=== PATIENT | male | born 1940 | race Caucasian/White ===

== ENCOUNTER 2018-04-04 10:40 | Inpatient (IN) ==
[~2018-04-04 10:40] MED LIST: Aminoglycoside Consult 1 EACH MC ONE
[2018-04-04] MEDS ORDERED: Cefepime HCl 2,000 MG in Water for inj. (sterile) 20 ML 20 ML IVP ONE (11:04)
[2018-04-04] MEDS ORDERED: 0.9 % Sodium Chloride 1,000 ML IVC ONE (11:04)
[2018-04-04] MEDS ORDERED: Isovue-370 500 ML INFUS..BTL IV ONE (11:06)
[2018-04-04 11:37] LABS: Basophils # 0.1 K/mcL (0.0-0.2); Basophils % 0.5 %; Eosinophils # 0.1 K/mcL (0.0-0.6); Eosinophils % 0.5 %; Hematocrit 38.3 % (37.5-50.1); Immature Granulocytes % 0.4 % (0-4); Lymphocytes # 1.1 K/mcL (0.6-4.6); Lymphocytes % 8.6 %; Mean Corpuscular HGB Conc 31.3 g/dL (31.6-35.5); Mean Corpuscular Hemoglobin 25.3 pg (28.0-33.3); Mean Corpuscular Volume 80.8 fL (83.0-100.0); Mean Platelet Volume 11.7 fL (9.4-12.4); Monocytes # 1.7 K/mcL (0.0-1.3); Monocytes % 12.6 %; Neutrophils # 10.1 K/mcL (1.6-8.9); Platelet Count 299 K/mcL (140-400); Red Blood Count 4.74 M/mcL (4.19-5.50); Segmented Neutrophils % 77.4 %
[2018-04-04 11:44] LABS: INR 1.9; Prothrombin Time 21.1 Seconds (9.4-12.1)
[2018-04-04 11:47] LABS: Activated Partial Thrombo Time 33.5 Seconds (26.0-36.0)
[2018-04-04 11:57] LABS: Alanine Aminotransferase 26 Units/L (7-52); Albumin 3.4 g/dL (3.5-5.7); Albumin/Globulin Ratio 1.1 (1.1-2.2); Alkaline Phosphatase 95 Units/L (34-104); Aspartate Amino Transferase 19 Units/L (13-39); BUN/Creatinine Ratio 14 (6-26); Bilirubin,Direct 0.4 mg/dL (0.0-0.2); Bilirubin,Indirect 0.7 mg/dL (0.0-1.2); Bilirubin,Total 1.1 mg/dL (0.3-1.0); Blood Urea Nitrogen 17 mg/dL (8-23); Calcium 8.9 mg/dL (8.6-10.3); Carbon Dioxide 25 mEq/L (23-29); Chloride 100 mEq/L (98-107); Globulin 3.1 g/dL (2.4-3.5); Glucose 230 mg/dL (70-105); Magnesium 1.2 mg/dL (1.6-2.6); Osmolality,Calculated 291 (280-300); Phosphorous 2.1 mg/dL (2.7-4.5); Potassium 4.2 mEq/L (3.5-5.1); Sodium 136 mEq/L (136-145); Total Protein 6.5 g/dL (6.4-8.9); Troponin I < 0.03 ng/mL (< 0.04); eGFR For Non-African Americans 57 (> 60)
[2018-04-04 13:18] LABS: Bilirubin,Urine Small (Negative); Blood,Urine Negative (Negative); Clarity,Urine Clear (Clear); Color,Urine Dark Yellow (Yellow); Glucose,Urine (UA) 250 mg/dL (Normal); Ketones,Urine Negative (Negative); Leukocyte Esterase,Urine Trace (Negative); Nitrite,Urine Negative (Negative); PH,Urine 5.5 pH Units (5.0-8.0); Protein,Urine 30 mg/dL (Neg-Trace); Specific Gravity,Urine 1.025 (1.010-1.025); Urobilinogen,Urine Normal (Normal)
[2018-04-04 13:21] LABS: Bacteria,Urine None Seen per hpf (None-Few); Hyaline Casts,Urine None Seen per lpf (None-Few); Squamous Epithelial Cell,Urine Few per lpf (None-Few)
[2018-04-04] MEDS ORDERED: *HR* Metoprolol 5 MG/5 ML VIAL IVP ONE (13:24)
[2018-04-04] MEDS ORDERED: *HR* Metoprolol 5 MG/5 ML VIAL IVP SCH (13:30)
[2018-04-04] MEDS: 0.9 % Sodium Chloride 1,000 ML IVC SCH ×2 (14:33→23:49)
[2018-04-04] MEDS ORDERED: Naloxone 0.4 MG/ML INJ IVP PRN (17:22)
[2018-04-04] MEDS ORDERED: Ondansetron 4 MG/2 ML VIAL IVP PRN (17:22)
[2018-04-04] MEDS ORDERED: Ipratropium/Albuterol Neb 3 ML IH ONE (17:39)
[2018-04-04] MEDS ORDERED: Piperacillin/Tazobactam 3.375 GM in 0.9 % Sodium Chloride Mini Bag 100 ML IVPB SCH (17:43)
[2018-04-04] MEDS ORDERED: Ipratropium/Albuterol Neb 3 ML IH SCH (17:43)
--- NOTE | 2018-04-04 17:52 | Internal Med History&Physical ---
<Phong Arellano W - Last Filed: 04/04/18 18:40> Date of Encounter: 04/04/18 Time of Encounter: 17:00 Internal Medicine - H&P: HPI Chief complaint: Cough Admitted From: Home Plans for Post Hospital Care: Home History of present illness: Mr. Taveras is a 77 year old male with PMH of AFib, COPD, asthma, PAD, DMII, GERD, HLD, HTN, and aortic aneurysm who presents with worsening cough for the past 7-10 days. Pt stated he had a wet, mucus producing cough that started about 10 days ago and would produce clear mucus, but the cough turned into a dry cough starting this past wednesday. Pt states that he takes a nebulizer at home Q4h as prescribed which helped his cough. He also tried cough syrup, but that didn't h elp. Nothing makes his cough worse. He has never experienced a cough like this before, but had a bout of bronchitis about 15 years ago, but not to this extent. He states he feels short of breath and is currently on 1.5L O2 NC, but doesn't feel like that is helping. He is not on O2 at home. He denies any sick contacts. Denies n/v/f/c/schilling/cp. Denies constipation, diarrhea, hematochezia, dysuria, or h ematuria. ED Course: labs were drawn and showed WBC of 13.1. Mg was low at 1.2. Lactic acid of 2.5 on admission and 1.7 on redraw. UA showed trace leukocyte esterase with 3-5 WBC and 5-15 RBC. Urine culture pending and blood cultures x2 pending. CTA showed no PE and multifocal broncopneumonia more in RLL with possible aspiration pneumonitis. Head CT showed acute sinusitis, otherwise non-acute. S tarted on Vanc and Maxipime. Mg-sulfate given. 1L NS bolus given. Past Med Surg Social Fam HX - Past Medical History Medical history: asthma, atrial fibrillation, cancer, DVT, diabetes, GERD, hyperlipidemia, renal disease Additional medical history: anemia. cluastrophobia,neuropathy, Psychiatric history: anxiety - Past Surgical History Surgical History: cancer surgery, cholecystectomy, colectomy, orthopedic, other, vasectomy Additional surgical history: Right AKA, Colon Resection - Social History Smoking Status: Former smoker Smokeless Tobacco Status: No Alcohol use: none Drug use: none Internal Medicine - H&P: Meds Albuterol Sulfate [Proair Hfa] 1 puff IH QID PRN 08/13/15 [History] Cyanocobalamin (Vitamin B-12) [Vitamin B-12] 1,000 mcg SL DAILY 08/13/15 [History] Omeprazole [PriLOSEC] 20 mg PO DAILY 08/13/15 [History] Rivaroxaban [Xarelto] 20 mg PO DAILY 08/13/15 [History] Fluticasone Propionate [Allergy Relief] 1 spr NS DAILY 04/04/18 [History] Metformin HCl 1,000 mg PO BID 04/04/18 [History] Metoprolol Tartrate 50 mg PO BID 04/04/18 [History] Simvastatin [Zocor] 40 mg PO QPM 04/04/18 [History] Allergy/AdvReac Type Severity Reaction Status Date / Time acetaminophen [From Percocet] Allergy Hallucinati Verified 10/13/17 11:31 ng adhesive tape Allergy See Verified 10/13/17 11:31 Comments aspirin [From Percodan] Allergy Hallucinati Verified 10/13/17 11:31 ng Oxycodone [From Percocet] Allergy Hallucinati Verified 10/13/17 11:31 ng All Systems PM: A 10-system review of systems was performed and is negative for pertinent findings except as documented above in the HPI. - Constitutional Constitutional: no chills, no fever(s), no night sweats - EENT Eyes: no change in vision, no discharge, no pain, no photophobia Nose, mouth and throat: no nasal discharge, no sore throat - Respiratory Respiratory: cough, wheezing, no dyspnea, no excessive phlegm production - Gastrointestinal Gastrointestinal: no abdominal pain, no diarrhea, no hematemesis, no hematochezia, no melena, no nausea, no vomiting - Musculoskeletal Musculoskeletal ROS IM: no arthralgias, no neck pain Additional comments: Uli FENTON - Integumentary Integumentary IM: no rash, no unusual bruising - Neurological Neurological ROS: no confusion, no convulsions, no focal weakness, no numbness, no tingling, no tremor(s) - Psychiatric Psychiatric: anxiety, no change in appetite, no confusion - Hematologic/Lymphatic Hematologic/Lymphatic: no easy bruising - Constitutional Vitals: Temp Pulse Resp BP Pulse Ox 98.2 F 98 21 102/69 94 04/04/18 16:45 04/04/18 16:45 04/04/18 16:45 04/04/18 16:45 04/04/18 16:45 Exam: Gen: mild distress, eldery male HEENT: neck supple, trachea midline, eyes PERRLA, mucus membranes moist CV: irregular irregular rhythm, tachycardic, no murmur, S1 and S2 present Pulm: expiratory wheezes b/l, no rales or rhonci, accessory muscle use Abd: distended, non tender, no masses, no guarding Extremities: R LE AKA, no swelling, LLE pedal pulse +2/4 Neuro: A&O x4, no focal deficits Psych: normal mood, normal affect Internal Med - H&P Results - Labs CBC & Chem 7: 04/04/18 11:20 04/04/18 11:20 Labs: Short CBC 04/04/18 Range/Units 11:20 WBC 13.1 H (4.3-11.1) K/mcL Hgb 12.0 L (12.9-16.9) g/dL Hct 38.3 (37.5-50.1) % Plt Count 299 (140-400) K/mcL Neutrophils # 10.1 H (1.6-8.9) K/mcL BMP 04/04/18 11:20 Sodium 136 Potassium 4.2 Chloride 100 Carbon Dioxide 25 BUN 17 Creatinine 1.23 Glucose 230 H Calcium 8.9 Cardiac Enzymes 04/04/18 Range/Units 11:20 Troponin I < 0.03 (< 0.04) ng/mL Liver Function 04/04/18 Range/Units 11:20 Total Bilirubin 1.1 H (0.3-1.0) mg/dL Direct Bilirubin 0.4 H (0.0-0.2) mg/dL AST 19 (13-39) Units/L ALT 26 (7-52) Units/L Alkaline Phosphatase 95 (34-104) Units/L Albumin 3.4 L (3.5-5.7) g/dL Urine 04/04/18 Range/Units 12:59 Urine Color Dark Yellow (Yellow) Urine Clarity Clear (Clear) Urine pH 5.5 (5.0-8.0) pH Units Ur Specific Lysite 1.025 (1.010-1.025) Urine Protein 30 H (Neg-Trace) mg/dL Urine Glucose (UA) 250 H (Normal) mg/dL - Impressions ITS Impressions Chest CTA 04/04/18 11:06 IMPRESSION: 1. No acute pulmonary emboli. 2. Multifocal basilar bronchopneumonia more prominent in the right lower lobe. This could relate to possible aspiration pneumonitis. 3. Mild emphysema. 4. Probable reactive right hilar lymphadenopathy. 5. Coronary and aortic atherosclerosis. D/ / 04/04/2018 13:05:40 Ramesh Benson MD / Ebony Castro Interpreting Provider: Ramesh Benson MD Head CT 04/04/18 13:45 IMPRESSION: 1. Intravascular contrast from recent IV contrast administration noted. 2. No gross acute intracranial abnormality. 3. Parenchymal volume loss and sequela of chronic microvascular ischemic changes. 4. Crews paranasal as mucosal thickening. Air-fluid level in the sphenoid sinus may represent acute sinusitis. D/ / Lisa Nunez MD / Lisa Nunez MD Interpreting Provider: Lisa Nunez MD - Assessment and plan (1) Sepsis Current Visit: Yes Status: Acute Assessment and plan: -WBC 13.1, tachy of 141, and RR 24 on admission; likely source of infection is pneumonia -lactic acid 2.5 on admission; down to 1.7 on redraw; trend -UA showed trace leukocyte esterase with 3-5 WBC and 5-15 RBC -Urine culture pending -blood cultures pending x2 -troponins trend -1L NS bolus given in ED; continue for 2 more liters, then reasses fluid status -started on vanc and maxipime; will change to vanc and zosyn -will start azithromycin for both possible COPD exacerbation and atypical pneumonia if aspiration pneumonia is more likely -strict I/O -daily weights Qualifiers: Qualified Code(s): A41.9 - Sepsis, unspecified organism (2) Pneumonia Current Visit: Yes Status: Acute Assessment and plan: -CTA in ED: no PE; multifocal bronchopneumonia more so in RLL with possible aspiration pneumonitis -CT head: acute sinusitis otherwise non-acute -blood cultures pending x2 -strep pneumonia, legionella, flu panel, mycoplasma, and MRSA swab pending -1L NS bolus in ED; continue for 2 more liters, then reassess fluid status -started on vanc and maxipime; will change to vanc and zosyn -will start azithromycin for both possible COPD exacerbation and atypical pneumonia if aspiration pneumonia is more likely -zopidex Q6h Qualifiers: Qualified Code(s): J18.9 - Pneumonia, unspecified organism (3) COPD (chronic obstructive pulmonary disease) Current Visit: Yes Status: Acute Assessment and plan: -former smoker -see pneumonia for treatment -monitor Qualifiers: Qualified Code(s): J44.9 - Chronic obstructive pulmonary disease, unspecified (4) Atrial fibrillation Current Visit: Yes Status: Acute Assessment and plan: -CHADS-VASc of 5 -on Xarelto; continue while in hospital Qualifiers: Qualified Code(s): I48.91 - Unspecified atrial fibrillation (5) Diabetes mellitus type 2 in nonobese Current Visit: Yes Status: Acute Assessment and plan: -glucose 230 on admission -hold metformin -start low dose ISS -monitor (6) HLD (hyperlipidemia) Current Visit: Yes Status: Acute Assessment and plan: -continue home simvastatin Qualifiers: Qualified Code(s): E78.00 - Pure hypercholesterolemia, unspecified (7) HTN (hypertension) Current Visit: Yes Status: Acute Assessment and plan: -continue home lopressor Qualifiers: Qualified Code(s): I10 - Essential (primary) hypertension (8) Asthma Current Visit: Yes Status: Acute Assessment and plan: -zopidex Q6h Qualifiers: Qualified Code(s): J45.909 - Unspecified asthma, uncomplicated - Time Spent With Patient Total time spent is greater than 50% in coordination of care (as documented) at patient's floor/unit and/or counseling patient: 25 - 35 minutes <Fernando Li - Last Filed: 04/04/18 19:35> Internal Medicine - H&P: HPI History of present illness: Mr. Taveras is a 77 year old male All Systems PM: A 10-system review of systems was performed and is negative for pertinent findings except as documented above in the HPI. - Constitutional Vitals: Temp Pulse Resp BP Pulse Ox 98.2 F 98 18 102/69 92 04/04/18 16:45 04/04/18 16:45 04/04/18 17:47 04/04/18 16:45 04/04/18 17:47 Internal Med - H&P Results - Labs CBC & Chem 7: 04/04/18 11:20 04/04/18 11:20 Labs: Short CBC 04/04/18 Range/Units 11:20 WBC 13.1 H (4.3-11.1) K/mcL Hgb 12.0 L (12.9-16.9) g/dL Hct 38.3 (37.5-50.1) % Plt Count 299 (140-400) K/mcL Neutrophils # 10.1 H (1.6-8.9) K/mcL BMP 04/04/18 11:20 Sodium 136 Potassium 4.2 Chloride 100 Carbon Dioxide 25 BUN 17 Creatinine 1.23 Glucose 230 H Calcium 8.9 Cardiac Enzymes 04/04/18 04/04/18 Range/Units 11:20 18:15 Troponin I < 0.03 0.03 (< 0.04) ng/mL Liver Function 04/04/18 Range/Units 11:20 Total Bilirubin 1.1 H (0.3-1.0) mg/dL Direct Bilirubin 0.4 H (0.0-0.2) mg/dL AST 19 (13-39) Units/L ALT 26 (7-52) Units/L Alkaline Phosphatase 95 (34-104) Units/L Albumin 3.4 L (3.5-5.7) g/dL Urine 04/04/18 Range/Units 12:59 Urine Color Dark Yellow (Yellow) Urine Clarity Clear (Clear) Urine pH 5.5 (5.0-8.0) pH Units Ur Specific Lysite 1.025 (1.010-1.025) Urine Protein 30 H (Neg-Trace) mg/dL Urine Glucose (UA) 250 H (Normal) mg/dL - Impressions ITS Impressions Chest CTA 04/04/18 11:06 IMPRESSION: 1. No acute pulmonary emboli. 2. Multifocal basilar bronchopneumonia more prominent in the right lower lobe. This could relate to possible aspiration pneumonitis. 3. Mild emphysema. 4. Probable reactive right hilar lymphadenopathy. 5. Coronary and aortic atherosclerosis. D/ / 04/04/2018 13:05:40 Ramesh Benson MD / Ebony Castro Interpreting Provider: Ramesh Benson MD Head CT 04/04/18 13:45 IMPRESSION: 1. Intravascular contrast from recent IV contrast administration noted. 2. No gross acute intracranial abnormality. 3. Parenchymal volume loss and sequela of chronic microvascular ischemic changes. 4. Crews paranasal as mucosal thickening. Air-fluid level in the sphenoid sinus may represent acute sinusitis. D/ / Lisa Nunez MD / Lisa Nunez MD Interpreting Provider: Lisa Nunez MD - Assessment and plan (1) Respiratory failure Current Visit: Yes Status: Acute Assessment and plan: Due to pneumonia Qualifiers: Chronicity: acute Respiratory failure complication: hypoxia Qualified Code(s): J96.01 - Acute respiratory failure with hypoxia (2) Sepsis Current Visit: Yes Status: Acute Qualifiers: Sepsis type: sepsis due to unspecified organism Qualified Code(s): A41.9 - Sepsis, unspecified organism (3) Pneumonia Current Visit: Yes Status: Suspected Qualifiers: Pneumonia type: aspiration pneumonia Aspiration pneumonia type: due to gastric secretions Laterality: bilateral Lung location: lower lobe of lung Qualified Code(s): J69.0 - Pneumonitis due to inhalation of food and vomit (4) Atrial fibrillation Current Visit: Yes Status: Chronic Qualifiers: Atrial fibrillation type: chronic Qualified Code(s): I48.2 - Chronic atrial fibrillation (5) HLD (hyperlipidemia) Current Visit: Yes Status: Chronic Qualifiers: Hyperlipidemia type: mixed hyperlipidemia Qualified Code(s): E78.2 - Mixed hyperlipidemia (6) HTN (hypertension) Current Visit: Yes Status: Chronic Qualifiers: Hypertension type: essential hypertension Qualified Code(s): I10 - Essential (primary) hypertension (7) COPD (chronic obstructive pulmonary disease) Current Visit: Yes Status: Chronic Qualifiers: COPD type: unspecified COPD Qualified Code(s): J44.9 - Chronic obstructive pulmonary disease, unspecified (8) Diabetes mellitus type 2 in nonobese Current Visit: Yes Status: Acute - Time Spent With Patient Total time spent is greater than 50% in coordination of care (as documented) at patient's floor/unit and/or counseling patient: - Attending Attestation The history, physical exam, and medical decision making was performed by the medical student either while I was physically present and actively involved or I personally re-performed the exam and medical decision making. I have verified the accuracy of the medical student's documentation with regards to the history, physical exam findings, and medical decision making on 04/03/18. Mr Taveras presented to ED with complaints of cough and difficulty breathing. No documented fever. No chest pain. Has been using aerosols without relief. Evaluated and admitted for bilateral pneumonia. Recently had colonoscopy. Exam Alert Mod resp distress - off oxygen and sat is 88%. Mucus membranes dry Heart tachy and irreg Lungs with wheeze bilaterally Abd soft and nontender No edema Moves all extremities I/P 1. Acute hypoxic resp failure - due to pneumonia. Oxygen supplement 2. Sepsis related to pneumonia 3. Possible asp pneumonia Further diagnoses and plan as above.
[2018-04-04] MEDS ORDERED: Vancomycin (wt based) 1,000 MG VIAL IVPB SCH (18:00)
[2018-04-04] MEDS ORDERED: Levofloxacin 750 MG/150 ML 750 MG/150 ML BAG IVPB SCH (18:00)
[2018-04-04] MEDS ORDERED: Azithromycin 500 MG in D5% in Water 250 ML IVPB ONE (18:28)
--- NOTE | 2018-04-04 18:33 | Sepsis Event Note ---
<Jacob Escobar - Last Filed: 04/04/18 18:31> Sepsis Reassessment Note - Evaluation Sepsis Screen: No Definite Risk Current Stage of Sepsis: sepsis Possible Source of Sepsis: pulmonary - Focused Exam Date of Encounter: 04/04/18 Time of Encounter: 17:00 Vital Signs: Vital Signs Temp Pulse Resp BP Pulse Ox 04/04/18 17:47 18 92 04/04/18 16:45 98.2 F 98 21 102/69 94 04/04/18 16:27 18 110/66 04/04/18 14:32 92 20 116/98 98 04/04/18 13:50 81 18 103/75 100 04/04/18 13:27 97 18 119/73 96 04/04/18 12:01 135 18 125/63 97 04/04/18 11:02 94 04/04/18 10:47 98.8 F 141 24 141/122 91 Respiratory Exam: Present: wheezes (diffuse), respiratory distress (mild) Cardiovascular Exam: Present: irregulary irregular Capillary Refill: < 2 seconds Peripheral Pulse Strength: 3+ normal Peripheral Pulse Location: Radial Skin Exam: normal turgor <Fernando Li - Last Filed: 04/04/18 19:36> Sepsis Reassessment Note - Focused Exam Vital Signs: Vital Signs Temp Pulse Resp BP Pulse Ox 04/04/18 17:47 18 92 04/04/18 16:45 98.2 F 98 21 102/69 94 04/04/18 16:27 18 110/66 04/04/18 14:32 92 20 116/98 98 04/04/18 13:50 81 18 103/75 100 04/04/18 13:27 97 18 119/73 96 04/04/18 12:01 135 18 125/63 97 04/04/18 11:02 94 04/04/18 10:47 98.8 F 141 24 141/122 91 - Reassessment Comments Comments: Agree with above.
[2018-04-04] MEDS ORDERED: *HR* Dextrose 50 % in Water (Syg) 50 ML SYRINGE IVP PRN (18:41)
[2018-04-04] MEDS ORDERED: Dextrose Gel 15 GM/37.5 ML TUBE PO PRN ×2 (18:41)
[2018-04-04] MEDS ORDERED: D5% in Water 1,000 ML IVC PRN (18:41)
--- NOTE | 2018-04-04 18:44 | Emergency Department Note ---
Disposition Disposition: Admitted As Inpatient General Adult HPI - General Chief complaint: ED Shortness of Breath/Dyspnea Stated complaint: pneumonia Time Seen by Provider: 04/04/18 10:48 Source: patient Limitations: no limitations Nursing Notes Reviewed: Yes Vital Signs Reviewed: Yes - History of Present Illness HPI Narrative: 77-year-old male who presents with concern for cough, dyspnea. Onset of symptoms was several days ago. 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 He reports some productive sputum and mild hypoxia on arrival. He does have a history of atrial fibrillation and is controlled with metoprolol. He does take several toe as an anticoagulant sentences findings of DVT with pulmonary embolism. General: No acute distress HEENT: Pupils equal and reactive to light, extraoccular muscle movement is normal, TMS are clear bilaterally. Heart: Irregular rate, tachycardic rhythm Lungs: Rhonchi bilaterally ABD: SNT, no focal areas or tenderness, no guarding or rebound tenderness. Extremities: There is right lower extremity amputation Neuro: CN 2-12 in tact, no focal deficit. strength 5/5. Medical decision making Findings consistent with atrial fibrillation with rapid ventricular response as well as underlying sepsis from likely pneumonia. CT scan of the chest shows no evidence of pulmonary embolism however there is findings of pneumonia. Broad- spectrum antibiotics were started on arrival. The patient had low magnesium this was subsequently replaced. He did have febrile response to IV fluids and subsequently was admitted to the hospital for further management of sepsis. Reevaluation did resolve tachycardia. He did require chemical conversion with metoprolol for a atrial fibrillation. During reevaluation the patient told the nurse that he was having blurred vision, felt confused. I did assess the patient in the room. I do not suspect these symptoms represented acute stroke however did order a stat head CT and discussed the updates with the hospitalist team. Stat head CT shows no evidence of intracranial bleeding or mass effect. Patient will be admitted with resolution of those symptoms that were previously described. Pain Scale: 0 - Related Data Home Medications Medication Instructions Recorded Confirmed Albuterol Sulfate [Proair Hfa] 1 puff IH QID PRN 08/13/15 04/04/18 Cyanocobalamin (Vitamin B-12) 1,000 mcg SL DAILY 08/13/15 04/04/18 [Vitamin B-12] Omeprazole [PriLOSEC] 20 mg PO DAILY 08/13/15 04/04/18 Rivaroxaban [Xarelto] 20 mg PO DAILY 08/13/15 04/04/18 Fluticasone Propionate [Allergy 1 spr NS DAILY 04/04/18 04/04/18 Relief] Metformin HCl 1,000 mg PO BID 04/04/18 04/04/18 Metoprolol Tartrate 50 mg PO BID 04/04/18 04/04/18 Simvastatin [Zocor] 40 mg PO QPM 04/04/18 04/04/18 Allergies Allergy/AdvReac Type Severity Reaction Status Date / Time acetaminophen [From Percocet] Allergy Hallucinati Verified 10/13/17 11:31 ng adhesive tape Allergy See Verified 10/13/17 11:31 Comments aspirin [From Percodan] Allergy Hallucinati Verified 10/13/17 11:31 ng Oxycodone [From Percocet] Allergy Hallucinati Verified 10/13/17 11:31 ng All systems ED: reviewed and negative except as stated. Past Medical History - Past Medical History Medical history: Reports: asthma, atrial fibrillation, cancer, DVT, diabetes, GERD, hyperlipidemia, renal disease Surgical history: Reports: cancer surgery, cholecystectomy, colectomy, orthopedic, other, vasectomy Psychiatric history: Reports: anxiety - Social History Smoking Status: Former smoker Smokeless Tobacco Status: No Alcohol use: Reports: none Drug use: Reports: none Physical Exam - General Limitations: no limitations General appearance: alert, in no apparent distress Course Vital Signs Temperature 98.8 F 04/04/18 10:47 Pulse Rate 141 04/04/18 10:47 Respiratory Rate 24 04/04/18 10:47 Blood Pressure 141/122 04/04/18 10:47 O2 Sat by Pulse Oximetry 91 04/04/18 10:47 Temperature 98.2 F 04/04/18 16:45 Pulse Rate 98 04/04/18 16:45 Respiratory Rate 18 04/04/18 17:47 Blood Pressure 102/69 04/04/18 16:45 O2 Sat by Pulse Oximetry 92 04/04/18 17:47 Oxygen Delivery Oxygen Delivery Nasal Cannula Medical Decision Making - Lab Data Result diagrams: 04/04/18 11:20 04/04/18 11:20 Lab Results 04/04/18 04/04/18 04/04/18 Range/Units 11:20 11:20 11:20 WBC 13.1 H (4.3-11.1) K/mcL RBC 4.74 (4.19-5.50) M/mcL Hgb 12.0 L (12.9-16.9) g/dL Hct 38.3 (37.5-50.1) % MCV 80.8 L (83.0-100.0) fL MCH 25.3 L (28.0-33.3) pg MCHC 31.3 L (31.6-35.5) g/dL RDW 16.0 H (11.5-14.5) % Plt Count 299 (140-400) K/mcL MPV 11.7 (9.4-12.4) fL Immature Gran % 0.4 (0-4) % Seg Neutrophils % 77.4 % Lymphocytes % 8.6 % Monocytes % 12.6 % Eosinophils % 0.5 % Basophils % 0.5 % Neutrophils # 10.1 H (1.6-8.9) K/mcL Lymphocytes # 1.1 (0.6-4.6) K/mcL Monocytes # 1.7 H (0.0-1.3) K/mcL Eosinophils # 0.1 (0.0-0.6) K/mcL Basophils # 0.1 (0.0-0.2) K/mcL PT (9.4-12.1) Seconds INR APTT (26.0-36.0) Seconds Sodium (136-145) mEq/L Potassium (3.5-5.1) mEq/L Chloride (98-107) mEq/L Carbon Dioxide (23-29) mEq/L BUN (8-23) mg/dL Creatinine (0.70-1.30) mg/dL Est GFR ( Amer) (> 60) Est GFR (Non-Af Amer) (> 60) BUN/Creatinine Ratio (6-26) Glucose (70-105) mg/dL Calculated Osmolality (280-300) Lactic Acid (0.5-2.2) mmol/L Calcium (8.6-10.3) mg/dL Phosphorus (2.7-4.5) mg/dL Magnesium (1.6-2.6) mg/dL Total Bilirubin (0.3-1.0) mg/dL Direct Bilirubin (0.0-0.2) mg/dL Indirect Bilirubin (0.0-1.2) mg/dL AST (13-39) Units/L ALT (7-52) Units/L Alkaline Phosphatase (34-104) Units/L Troponin I (< 0.04) ng/mL B-Natriuretic Peptide 177 H (Less than 100) pg/mL Serum Total Protein (6.4-8.9) g/dL Albumin (3.5-5.7) g/dL Globulin (2.4-3.5) g/dL Albumin/Globulin Ratio (1.1-2.2) Lipase < 3 L (11-82) Units/L Urine Color (Yellow) Urine Clarity (Clear) Urine pH (5.0-8.0) pH Units Ur Specific [place] (1.010-1.025) Urine Protein (Neg-Trace) mg/dL Urine Glucose (UA) (Normal) mg/dL Urine Ketones (Negative) mg/dL Urine Blood (Negative) Urine Nitrite (Negative) Urine Bilirubin (Negative) Urine Urobilinogen (Normal) mg/dL Ur Leukocyte Esterase (Negative) Urine Microscopic RBC (0-3) per hpf Urine Microscopic WBC (0-3) per hpf Ur Squamous Epith Cells (None-Few) per lpf Urine Bacteria (None-Few) per hpf Hyaline Casts (None-Few) per lpf Ur Culture Indicated? (NO) Blood Type Antibody Screen 04/04/18 04/04/18 04/04/18 Range/Units 11:20 11:20 11:20 WBC (4.3-11.1) K/mcL RBC (4.19-5.50) M/mcL Hgb (12.9-16.9) g/dL Hct (37.5-50.1) % MCV (83.0-100.0) fL MCH (28.0-33.3) pg MCHC (31.6-35.5) g/dL RDW (11.5-14.5) % Plt Count (140-400) K/mcL MPV (9.4-12.4) fL Immature Gran % (0-4) % Seg Neutrophils % % Lymphocytes % % Monocytes % % Eosinophils % % Basophils % % Neutrophils # (1.6-8.9) K/mcL Lymphocytes # (0.6-4.6) K/mcL Monocytes # (0.0-1.3) K/mcL Eosinophils # (0.0-0.6) K/mcL Basophils # (0.0-0.2) K/mcL PT 21.1 H (9.4-12.1) Seconds INR 1.9 APTT 33.5 (26.0-36.0) Seconds Sodium 136 (136-145) mEq/L Potassium 4.2 (3.5-5.1) mEq/L Chloride 100 (98-107) mEq/L Carbon Dioxide 25 (23-29) mEq/L BUN 17 (8-23) mg/dL Creatinine 1.23 (0.70-1.30) mg/dL Est GFR ( Amer) > 60 (> 60) Est GFR (Non-Af Amer) 57 L (> 60) BUN/Creatinine Ratio 14 (6-26) Glucose 230 H (70-105) mg/dL Calculated Osmolality 291 (280-300) Lactic Acid 2.5 H (0.5-2.2) mmol/L Calcium 8.9 (8.6-10.3) mg/dL Phosphorus 2.1 L (2.7-4.5) mg/dL Magnesium 1.2 L (1.6-2.6) mg/dL Total Bilirubin 1.1 H (0.3-1.0) mg/dL Direct Bilirubin 0.4 H (0.0-0.2) mg/dL Indirect Bilirubin 0.7 (0.0-1.2) mg/dL AST 19 (13-39) Units/L ALT 26 (7-52) Units/L Alkaline Phosphatase 95 (34-104) Units/L Troponin I < 0.03 (< 0.04) ng/mL B-Natriuretic Peptide (Less than 100) pg/mL Serum Total Protein 6.5 (6.4-8.9) g/dL Albumin 3.4 L (3.5-5.7) g/dL Globulin 3.1 (2.4-3.5) g/dL Albumin/Globulin Ratio 1.1 (1.1-2.2) Lipase (11-82) Units/L Urine Color (Yellow) Urine Clarity (Clear) Urine pH (5.0-8.0) pH Units Ur Specific [place] (1.010-1.025) Urine Protein (Neg-Trace) mg/dL Urine Glucose (UA) (Normal) mg/dL Urine Ketones (Negative) mg/dL Urine Blood (Negative) Urine Nitrite (Negative) Urine Bilirubin (Negative) Urine Urobilinogen (Normal) mg/dL Ur Leukocyte Esterase (Negative) Urine Microscopic RBC (0-3) per hpf Urine Microscopic WBC (0-3) per hpf Ur Squamous Epith Cells (None-Few) per lpf Urine Bacteria (None-Few) per hpf Hyaline Casts (None-Few) per lpf Ur Culture Indicated? (NO) Blood Type Antibody Screen 04/04/18 04/04/18 Range/Units 11:20 12:59 WBC (4.3-11.1) K/mcL RBC (4.19-5.50) M/mcL Hgb (12.9-16.9) g/dL Hct (37.5-50.1) % MCV (83.0-100.0) fL MCH (28.0-33.3) pg MCHC (31.6-35.5) g/dL RDW (11.5-14.5) % Plt Count (140-400) K/mcL MPV (9.4-12.4) fL Immature Gran % (0-4) % Seg Neutrophils % % Lymphocytes % % Monocytes % % Eosinophils % % Basophils % % Neutrophils # (1.6-8.9) K/mcL Lymphocytes # (0.6-4.6) K/mcL Monocytes # (0.0-1.3) K/mcL Eosinophils # (0.0-0.6) K/mcL Basophils # (0.0-0.2) K/mcL PT (9.4-12.1) Seconds INR APTT (26.0-36.0) Seconds Sodium (136-145) mEq/L Potassium (3.5-5.1) mEq/L Chloride (98-107) mEq/L Carbon Dioxide (23-29) mEq/L BUN (8-23) mg/dL Creatinine (0.70-1.30) mg/dL Est GFR ( Amer) (> 60) Est GFR (Non-Af Amer) (> 60) BUN/Creatinine Ratio (6-26) Glucose (70-105) mg/dL Calculated Osmolality (280-300) Lactic Acid (0.5-2.2) mmol/L Calcium (8.6-10.3) mg/dL Phosphorus (2.7-4.5) mg/dL Magnesium (1.6-2.6) mg/dL Total Bilirubin (0.3-1.0) mg/dL Direct Bilirubin (0.0-0.2) mg/dL Indirect Bilirubin (0.0-1.2) mg/dL AST (13-39) Units/L ALT (7-52) Units/L Alkaline Phosphatase (34-104) Units/L Troponin I (< 0.04) ng/mL B-Natriuretic Peptide (Less than 100) pg/mL Serum Total Protein (6.4-8.9) g/dL Albumin (3.5-5.7) g/dL Globulin (2.4-3.5) g/dL Albumin/Globulin Ratio (1.1-2.2) Lipase (11-82) Units/L Urine Color Dark Yellow (Yellow) Urine Clarity Clear (Clear) Urine pH 5.5 (5.0-8.0) pH Units Ur Specific [place] 1.025 (1.010-1.025) Urine Protein 30 H (Neg-Trace) mg/dL Urine Glucose (UA) 250 H (Normal) mg/dL Urine Ketones Negative (Negative) mg/dL Urine Blood Negative (Negative) Urine Nitrite Negative (Negative) Urine Bilirubin Small H (Negative) Urine Urobilinogen Normal (Normal) mg/dL Ur Leukocyte Esterase Trace H (Negative) Urine Microscopic RBC 5-15 H (0-3) per hpf Urine Microscopic WBC 3-5 H (0-3) per hpf Ur Squamous Epith Cells Few (None-Few) per lpf Urine Bacteria None Seen (None-Few) per hpf Hyaline Casts None Seen (None-Few) per lpf Ur Culture Indicated? YES A (NO) Blood Type O POSITIVE Antibody Screen NEGATIVE Critical Care Time Critical Care Time: Yes Total Critical Care Time: 35 Attestation: Critical care performed:treatment of hypoxia Time is exclusive of separately billable procedures. Time includes: direct patient care, patient reassessment, coordination of patient care, interpretation of data (laboratory data, radiology data, and respiratory data), review of patient's medical records, medical consultation and documentation of patient care. Procedures included in critical care time:0 Procedures excluded from critical care time:35
[2018-04-04] MEDS: Insulin LISPRO 300 UNITS/3 ML VIAL SQ SCH (20:48)
[2018-04-04] MEDS: Levalbuterol Neb 1.25 MG/3 ML IH SCH (21:49)
[2018-04-05 00:57] LABS: Basophils # 0.1 K/mcL (0.0-0.2); Basophils % 0.5 %; Eosinophils # 0.1 K/mcL (0.0-0.6); Eosinophils % 1.2 %; Hematocrit 34.1 % (37.5-50.1); Hemoglobin 10.8 g/dL (12.9-16.9); Immature Granulocytes % 0.3 % (0-4); Lymphocytes # 0.8 K/mcL (0.6-4.6); Lymphocytes % 7.8 %; Mean Corpuscular HGB Conc 31.7 g/dL (31.6-35.5); Mean Corpuscular Hemoglobin 25.7 pg (28.0-33.3); Mean Corpuscular Volume 81.2 fL (83.0-100.0); Mean Platelet Volume 11.7 fL (9.4-12.4); Monocytes # 1.2 K/mcL (0.0-1.3); Monocytes % 11.6 %; Neutrophils # 7.8 K/mcL (1.6-8.9); Platelet Count 283 K/mcL (140-400); Red Cell Distribution Width 15.9 % (11.5-14.5); Segmented Neutrophils % 78.6 %
[2018-04-05] MEDS ORDERED: Piperacillin/Tazobactam 3.375 GM in 0.9 % Sodium Chloride Mini Bag 100 ML IVPB SCH (01:00)
[2018-04-05 01:04] LABS: INR 1.4; Prothrombin Time 16.1 Seconds (9.4-12.1)
[2018-04-05 01:06] LABS: BUN/Creatinine Ratio 13 (6-26); Blood Urea Nitrogen 14 mg/dL (8-23); Calcium 8.2 mg/dL (8.6-10.3); Carbon Dioxide 24 mEq/L (23-29); Chloride 103 mEq/L (98-107); Glucose 218 mg/dL (70-105); Magnesium 1.4 mg/dL (1.6-2.6); Osmolality,Calculated 287 (280-300); Phosphorous 2.2 mg/dL (2.7-4.5); Potassium 4.1 mEq/L (3.5-5.1); Sodium 135 mEq/L (136-145); eGFR For Non-African Americans > 60 (> 60)
[2018-04-05] MEDS: Levalbuterol Neb 1.25 MG/3 ML IH SCH ×5 (03:10→23:53)
[2018-04-05] MEDS: Piperacillin/Tazobactam 3.375 GM in 0.9 % Sodium Chloride Mini Bag 100 ML IVPB SCH ×2 (08:30→17:21)
[2018-04-05] MEDS: Insulin LISPRO 300 UNITS/3 ML VIAL SQ SCH ×4 (08:31→20:56)
--- NOTE | 2018-04-05 08:46 | Internal Med Progress Note ---
<Phong Arellano - Last Filed: 04/05/18 13:13> Hospitalist Progress Note - Encounter Date of Encounter: 04/05/18 Time of Encounter: 08:00 - Subjective Interval History: Pt seen bedside for follow up for cough and dyspnea. Pt states he feels much better today after receiving his breathing treatment. However, admits to significant SOB prior to breathing treatments. Denies any pain anywhere. No BM this AM, but denies constipation or diarrhea. Denies dysuria or hematuria. Deneis n/v/f/c/schilling/cp. Pt was very tachycardic after breathing treatment with HR of 90-110. - Exam Vitals: Temp Pulse Resp BP Pulse Ox 97.6 F 96 20 142/77 96 04/05/18 07:28 04/05/18 07:28 04/05/18 07:30 04/05/18 07:28 04/05/18 07:30 Exam: Gen: NAD, eldery male HEENT: neck supple, trachea midline, eyes PERRLA, mucus membranes dry CV: irregular irregular rhythm, tachycardic, no murmur, S1 and S2 present Pulm: expiratory wheezes b/l, no rales or rhonci, accessory muscle use Abd: distended, non tender, no masses, no guarding Extremities: R LE AKA, no swelling, LLE pedal pulse +2/4 Neuro: A&O x4, no focal deficits Psych: normal mood, normal affect - Assessment and Plan (1) Sepsis Current Visit: Yes Status: Acute Assessment and Plan: -WBC 13.1, tachy of 141, and RR 24 on admission; likely source of infection is pneumonia -lactic acid 2.5 on admission; down to 1.7 on redraw -UA showed trace leukocyte esterase with 3-5 WBC and 5-15 RBC -Urine culture pending -blood cultures pending x2 -discontinue vanc dut to negative MRSA swab -continue zosyn -continue azithromycin for both possible COPD exacerbation and atypical pneumonia if aspiration pneumonia is more likely -strict I/O -daily weights (2) Pneumonia Current Visit: Yes Status: Suspected Assessment and Plan: -CTA in ED: no PE; multifocal bronchopneumonia more so in RLL with possible aspiration pneumonitis -CT head: acute sinusitis otherwise non-acute -blood cultures pending x2 -strep pneumonia, legionella, flu panel, mycoplasma, pending -MRSA swab negative -discontinue vanc d/t negative MRSA -continue azithromycin for both possible COPD exacerbation and atypical pneumonia if aspiration pneumonia is more likely -zopidex Q6h (3) Electrolyte abnormality Current Visit: Yes Status: Acute Assessment and Plan: -Phos low at 2.2; given Nutra-phos; continue to monitor -Mg2+ low at 1.2; given 2g Mg2+; continue to monitor -daily BMPs (4) COPD (chronic obstructive pulmonary disease) Current Visit: Yes Status: Chronic Assessment and Plan: -former smoker -on 2L NC O2; humidified -see pneumonia for treatment -monitor (5) Atrial fibrillation Current Visit: Yes Status: Chronic Assessment and Plan: -CHADS-VASc of 5 -on Xarelto; continue while in hospital -monitor anemia status (6) Diabetes mellitus type 2 in nonobese Current Visit: Yes Status: Acute Assessment and Plan: -glucose 230 on admission -hold metformin -low dose ISS -monitor (7) HLD (hyperlipidemia) Current Visit: Yes Status: Chronic Assessment and Plan: -continue home simvastatin (8) HTN (hypertension) Current Visit: Yes Status: Chronic Assessment and Plan: -continue home BP meds (9) Asthma Current Visit: Yes Status: Acute Assessment and Plan: -zolpidex Q6h DVT Prophylaxis: xarelto - Time Spent with Patient Total time spent is greater than 50% in coordination of care (as documented) at patient's floor/unit and/or counseling patient: 25 - 35 minutes Plan of Care Discussed with: patient Internal Medicine: Result - Labs CBC & Chem 7: 04/05/18 00:37 04/05/18 00:37 Labs: Short CBC 04/04/18 04/05/18 Range/Units 11:20 00:37 WBC 13.1 H 10.0 (4.3-11.1) K/mcL Hgb 12.0 L 10.8 L (12.9-16.9) g/dL Hct 38.3 34.1 L (37.5-50.1) % Plt Count 299 283 (140-400) K/mcL Neutrophils # 10.1 H 7.8 (1.6-8.9) K/mcL BMP 04/04/18 04/05/18 11:20 00:37 Sodium 136 135 L Potassium 4.2 4.1 Chloride 100 103 Carbon Dioxide 25 24 BUN 17 14 Creatinine 1.23 1.10 Glucose 230 H 218 H Calcium 8.9 8.2 L Cardiac Enzymes 04/04/18 04/04/18 04/05/18 Range/Units 11:20 18:15 00:37 Troponin I < 0.03 0.03 0.03 (< 0.04) ng/mL Liver Function 04/04/18 Range/Units 11:20 Total Bilirubin 1.1 H (0.3-1.0) mg/dL Direct Bilirubin 0.4 H (0.0-0.2) mg/dL AST 19 (13-39) Units/L ALT 26 (7-52) Units/L Alkaline Phosphatase 95 (34-104) Units/L Albumin 3.4 L (3.5-5.7) g/dL Urine 04/04/18 Range/Units 12:59 Urine Color Dark Yellow (Yellow) Urine Clarity Clear (Clear) Urine pH 5.5 (5.0-8.0) pH Units Ur Specific [place] 1.025 (1.010-1.025) Urine Protein 30 H (Neg-Trace) mg/dL Urine Glucose (UA) 250 H (Normal) mg/dL - ABG Interpretation ABG results: PT/INR, D-dimer PT 16.1 Seconds (9.4-12.1) H 04/05/18 00:37 - Impressions Impressions Chest CTA 04/04/18 11:06 IMPRESSION: 1. No acute pulmonary emboli. 2. Multifocal basilar bronchopneumonia more prominent in the right lower lobe. This could relate to possible aspiration pneumonitis. 3. Mild emphysema. 4. Probable reactive right hilar lymphadenopathy. 5. Coronary and aortic atherosclerosis. D/ / 04/04/2018 13:05:40 Ramesh Benson MD / Ebony Castro Interpreting Provider: Ramesh Benson MD Head CT 04/04/18 13:45 IMPRESSION: 1. Intravascular contrast from recent IV contrast administration noted. 2. No gross acute intracranial abnormality. 3. Parenchymal volume loss and sequela of chronic microvascular ischemic changes. 4. Crews paranasal as mucosal thickening. Air-fluid level in the sphenoid sinus may represent acute sinusitis. D/ / Lisa Nunez MD / Lisa Nunez MD Interpreting Provider: Lisa Nunez MD Consult Discharge Plan - Plan Referrals: Wily Fonseca DO [Primary Care Provider] - <Nissa Dean - Last Filed: 04/05/18 14:10> Hospitalist Progress Note - Exam Vitals: Temp Pulse Resp BP Pulse Ox 98.1 F 96 16 122/69 96 04/05/18 11:22 04/05/18 07:28 04/05/18 11:32 04/05/18 11:22 04/05/18 11:32 - Assessment and Plan (1) Sepsis Current Visit: Yes Status: Acute (2) Pneumonia Current Visit: Yes Status: Suspected (3) Diabetes mellitus type 2 in nonobese Current Visit: Yes Status: Acute (4) COPD (chronic obstructive pulmonary disease) Current Visit: Yes Status: Chronic (5) HLD (hyperlipidemia) Current Visit: Yes Status: Chronic (6) HTN (hypertension) Current Visit: Yes Status: Chronic (7) Atrial fibrillation Current Visit: Yes Status: Chronic (8) Respiratory failure Current Visit: Yes Status: Acute - Time Spent with Patient Total time spent is greater than 50% in coordination of care (as documented) at patient's floor/unit and/or counseling patient: Internal Medicine: Result - Labs CBC & Chem 7: 04/05/18 00:37 04/05/18 00:37 Labs: Short CBC 04/05/18 Range/Units 00:37 WBC 10.0 (4.3-11.1) K/mcL Hgb 10.8 L (12.9-16.9) g/dL Hct 34.1 L (37.5-50.1) % Plt Count 283 (140-400) K/mcL Neutrophils # 7.8 (1.6-8.9) K/mcL BMP 04/05/18 00:37 Sodium 135 L Potassium 4.1 Chloride 103 Carbon Dioxide 24 BUN 14 Creatinine 1.10 Glucose 218 H Calcium 8.2 L Cardiac Enzymes 04/04/18 04/05/18 Range/Units 18:15 00:37 Troponin I 0.03 0.03 (< 0.04) ng/mL - ABG Interpretation ABG results: PT/INR, D-dimer PT 16.1 Seconds (9.4-12.1) H 04/05/18 00:37 - Impressions Impressions Head CT 04/04/18 13:45 IMPRESSION: 1. Intravascular contrast from recent IV contrast administration noted. 2. No gross acute intracranial abnormality. 3. Parenchymal volume loss and sequela of chronic microvascular ischemic changes. 4. Crews paranasal as mucosal thickening. Air-fluid level in the sphenoid sinus may represent acute sinusitis. D/ / Lisa Nunez MD / Lisa Nunez MD Interpreting Provider: Lisa Nunez MD - Attending Attestation The history, physical exam, and medical decision making was performed by the medical student Adan either while I was physically present and actively involved or I personally re-performed the exam and medical decision making. I have verified the accuracy of the medical student's documentation with regards to the history, physical exam findings, and medical decision making. Mr Taveras presented to ED with complaints of cough and difficulty breathing. No documented fever. No chest pain. Has been using aerosols without relief. Evaluated and admitted for bilateral pneumonia. He has a hx of chronic afib on AC and anemia, recently had colonoscopy. Awake, in bed. No sob at this time, as nebs significantly improve symptoms with symptom return near time due for next neb. + cough, non productive at this time. No wheezing, fevers, chills, nausea, emesis. Denies brbpr, melena, bleeding elsewhere. Denies dysphagia. gen- alert, awake,appears stated age eyes- pupils equal round cv- reg rate and irreg/irreg rhythm, normal s1,s2, no murmurs appreciated, no le edema lungs- diminished throughout, no wheezing, rhonchi or crackles appreciated, normal resp effort on o2 nc neuro- AAOx3 A/P Acute hypoxic resp failure as evidenced by need for supplemental O2 NC - likely due to pneumonia. Oxygen supplement prn, may require home o2 eval when closer to dc Sepsis related to pneumonia, resolved- afebrile, lactate wnl, leukocytosis resolved, ucx neg, bl cxs ngtd, cont abx as below Possible asp pneumonia, organism unknown- azithro + zosyn, nebs, [facility] RN eval, leg/strep/flu/mrsa neg, Hypomagnesemia- IV repletion today Anemia, unclear if acute or acute on chronic vs chronic, may be related to AC (Xarelto)- no recent hgb checked, priors appear wnl, hgb 12 and decrease to 10.8 today, IVFs discontinued as there was drop in all 3 cell lines on cbc today. If not improvement will consider further anemia work up this admission. INR 1.4, plts wnl DM- hold metformin, SSI and accu checks Further diagnoses and plan as per student note <Phong Arellano W - Last Filed: 04/05/18 13:13> (1) Sepsis Qualifiers: Sepsis type: sepsis due to unspecified organism Qualified Code(s): A41.9 - Sepsis, unspecified organism (2) Pneumonia Qualifiers: Pneumonia type: aspiration pneumonia Aspiration pneumonia type: due to gastric secretions Laterality: bilateral Lung location: lower lobe of lung Qualified Code(s): J69.0 - Pneumonitis due to inhalation of food and vomit (4) COPD (chronic obstructive pulmonary disease) Qualifiers: COPD type: unspecified COPD Qualified Code(s): J44.9 - Chronic obstructive pulmonary disease, unspecified (5) Atrial fibrillation Qualifiers: Atrial fibrillation type: chronic Qualified Code(s): I48.2 - Chronic atrial fibrillation (7) HLD (hyperlipidemia) Qualifiers: Hyperlipidemia type: mixed hyperlipidemia Qualified Code(s): E78.2 - Mixed hyperlipidemia (8) HTN (hypertension) Qualifiers: Hypertension type: essential hypertension Qualified Code(s): I10 - Essential (primary) hypertension (9) Asthma Qualifiers: Qualified Code(s): J45.909 - Unspecified asthma, uncomplicated <Nissa Dean - Last Filed: 04/05/18 14:10> (1) Sepsis Qualifiers: Sepsis type: sepsis due to unspecified organism Qualified Code(s): A41.9 - Sepsis, unspecified organism (2) Pneumonia Qualifiers: Pneumonia type: aspiration pneumonia Aspiration pneumonia type: due to gastric secretions Laterality: bilateral Lung location: lower lobe of lung Qualified Code(s): J69.0 - Pneumonitis due to inhalation of food and vomit (4) COPD (chronic obstructive pulmonary disease) Qualifiers: COPD type: unspecified COPD Qualified Code(s): J44.9 - Chronic obstructive pulmonary disease, unspecified (5) HLD (hyperlipidemia) Qualifiers: Hyperlipidemia type: mixed hyperlipidemia Qualified Code(s): E78.2 - Mixed hyperlipidemia (6) HTN (hypertension) Qualifiers: Hypertension type: essential hypertension Qualified Code(s): I10 - Essential (primary) hypertension (7) Atrial fibrillation Qualifiers: Atrial fibrillation type: chronic Qualified Code(s): I48.2 - Chronic atrial fibrillation (8) Respiratory failure Qualifiers: Chronicity: acute Respiratory failure complication: hypoxia Qualified Code(s): J96.01 - Acute respiratory failure with hypoxia
--- NOTE | 2018-04-05 13:20 | Electrocardiograph Report ---
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
[2018-04-05] MEDS: *HR* Rivaroxaban 10 MG TABLET PO SCH (17:20)
[2018-04-05] MEDS ORDERED: Azithromycin 250 MG in D5% in Water 250 ML IVPB SCH (19:00)
[2018-04-05] MEDS ORDERED: *HR* Metoprolol 5 MG/5 ML VIAL IVP ONE (21:18)
[2018-04-05] MEDS: Azithromycin 250 MG in D5% in Water 250 ML IVPB SCH (22:49)
[2018-04-06] MEDS: Piperacillin/Tazobactam 3.375 GM in 0.9 % Sodium Chloride Mini Bag 100 ML IVPB SCH ×2 (01:28→07:42)
[2018-04-06] MEDS: Levalbuterol Neb 1.25 MG/3 ML IH SCH ×6 (03:18→23:08)
[2018-04-06 03:54] LABS: Hematocrit 36.5 % (37.5-50.1); Hemoglobin 11.1 g/dL (12.9-16.9); Mean Corpuscular HGB Conc 30.4 g/dL (31.6-35.5); Mean Corpuscular Hemoglobin 24.8 pg (28.0-33.3); Mean Corpuscular Volume 81.7 fL (83.0-100.0); Mean Platelet Volume 11.5 fL (9.4-12.4); Platelet Count 317 K/mcL (140-400); Red Blood Count 4.47 M/mcL (4.19-5.50)
[2018-04-06 03:58] LABS: BUN/Creatinine Ratio 13 (6-26); Blood Urea Nitrogen 12 mg/dL (8-23); Calcium 8.2 mg/dL (8.6-10.3); Carbon Dioxide 24 mEq/L (23-29); Chloride 104 mEq/L (98-107); Glucose 216 mg/dL (70-105); Magnesium 1.6 mg/dL (1.6-2.6); Osmolality,Calculated 288 (280-300); Phosphorous 2.5 mg/dL (2.7-4.5); Sodium 136 mEq/L (136-145); eGFR For Non-African Americans > 60 (> 60)
[2018-04-06] MEDS: Insulin LISPRO 300 UNITS/3 ML VIAL SQ SCH ×4 (07:43→21:27)
--- NOTE | 2018-04-06 09:26 | Internal Med Progress Note ---
<Phong Arellano - Last Filed: 04/06/18 13:07> Hospitalist Progress Note - Encounter Date of Encounter: 04/06/18 Time of Encounter: 08:40 - Subjective Interval History: Pt seen bedside for follow up for cough and dyspnea. Pt states he feels much better today after receiving his breathing treatment. Denies any pain anywhere. No BM this AM, but had one yesterday. Denies constipation or diarrhea. Denies dysuria or hematuria. Deneis n/v/f/c/schilling/cp. Pt likely to go home today or tomorrow - Exam Vitals: Temp Pulse Resp BP Pulse Ox 97.5 F L 118 28 153/89 96 04/06/18 07:07 04/06/18 07:07 04/06/18 08:13 04/06/18 07:07 04/06/18 08:13 Exam: Gen: NAD, eldery male HEENT: neck supple, trachea midline, eyes PERRLA, mucus membranes dry CV: irregular irregular rhythm, no murmur, S1 and S2 present Pulm: expiratory wheezes b/l, no rales or rhonci, accessory muscle use Abd: distended, non tender, no masses, no guarding Extremities: R LE AKA, no swelling, LLE pedal pulse +2/4 Neuro: A&O x4, no focal deficits Psych: normal mood, normal affect - Assessment and Plan (1) Sepsis Current Visit: Yes Status: Acute Assessment and Plan: -WBC 13.1, tachy of 141, and RR 24 on admission; likely source of infection is pneumonia -lactic acid 2.5 on admission; down to 1.7 on redraw -UA showed trace leukocyte esterase with 3-5 WBC and 5-15 RBC -Urine culture negative -blood cultures pending x2 -mycoplasma pending -discontinue vanc due to negative MRSA swab -negative flu A/B, legionella, and strep pneumo -continue zosyn -continue azithromycin for both possible COPD exacerbation and atypical pneumonia if aspiration pneumonia is more likely -strict I/O -daily weights (2) Pneumonia Current Visit: Yes Status: Suspected Assessment and Plan: -CTA in ED: no PE; multifocal bronchopneumonia more so in RLL with possible aspiration pneumonitis -CT head: acute sinusitis otherwise non-acute -blood cultures pending x2 -mycoplasma pending -strep pneumonia, legionella, flu panel negative -MRSA swab negative -discontinue vanc d/t negative MRSA -change zosyn to PO Unasyn for 4 more days of treatment to complete 7 day course of abx -continue azithromycin for both possible COPD exacerbation and atypical pneumonia if aspiration pneumonia is more likely -xopenex Q4h -Home with home healthcare and PT recommends home PT (3) Electrolyte abnormality Current Visit: Yes Status: Acute Assessment and Plan: -Phos low at 2.2 yesterday and gave Nutra-phos; 2.5 today -Mg2+ low at 1.2 yesterday and gave 2g Mg2+; 1.6 today 400mg Mag-Ox given -daily BMPs (4) COPD (chronic obstructive pulmonary disease) Current Visit: Yes Status: Chronic Assessment and Plan: -former smoker -on 2L NC O2; humidified -see pneumonia for treatment -will perform 6 min walk test to determine if pt needes O2 at home (5) Atrial fibrillation Current Visit: Yes Status: Chronic Assessment and Plan: -CHADS-VASc of 5 -on Xarelto; continue while in hospital -continue home lopressor -monitor anemia status (6) Diabetes mellitus type 2 in nonobese Current Visit: Yes Status: Acute Assessment and Plan: -glucose 230 on admission -hold metformin -low dose ISS -monitor (7) HLD (hyperlipidemia) Current Visit: Yes Status: Chronic Assessment and Plan: -continue home simvastatin (8) HTN (hypertension) Current Visit: Yes Status: Chronic Assessment and Plan: -continue home BP meds (9) Asthma Current Visit: Yes Status: Acute Assessment and Plan: -xopenex Q4h (10) Anemia Current Visit: No Status: Chronic Assessment and Plan: -Hgb of 11.1 today -may be likely to h/o Xarelto use -monitor DVT Prophylaxis: xarelto - Time Spent with Patient Total time spent is greater than 50% in coordination of care (as documented) at patient's floor/unit and/or counseling patient: 25 - 35 minutes Plan of Care Discussed with: patient Internal Medicine: Result - Labs CBC & Chem 7: 04/06/18 03:10 04/06/18 03:10 Labs: Short CBC 04/06/18 Range/Units 03:10 WBC 10.0 (4.3-11.1) K/mcL Hgb 11.1 L (12.9-16.9) g/dL Hct 36.5 L (37.5-50.1) % Plt Count 317 (140-400) K/mcL BMP 04/06/18 03:10 Sodium 136 Potassium 4.0 Chloride 104 Carbon Dioxide 24 BUN 12 Creatinine 0.92 Glucose 216 H Calcium 8.2 L - ABG Interpretation ABG results: PT/INR, D-dimer PT 16.1 Seconds (9.4-12.1) H 04/05/18 00:37 Consult Discharge Plan - Plan Instructions: Atrial Fibrillation (DC), Asthma (DC), Diabetes Mellitus Type 2 in Adults (DC), Chronic Obstructive Pulmonary Disease (DC), Sepsis (DC), Chronic Hypertension (DC), Anemia (GEN) Referrals: Wily Fonseca DO [Primary Care Provider] - <Nissa Dean - Last Filed: 04/06/18 14:59> Hospitalist Progress Note - Exam Vitals: Temp Pulse Resp BP Pulse Ox 97.5 F L 95 19 127/65 92 04/06/18 07:07 04/06/18 11:21 04/06/18 11:21 04/06/18 11:21 04/06/18 11:21 - Assessment and Plan (1) Sepsis Current Visit: Yes Status: Acute (2) Pneumonia Current Visit: Yes Status: Suspected (3) Diabetes mellitus type 2 in nonobese Current Visit: Yes Status: Acute (4) COPD (chronic obstructive pulmonary disease) Current Visit: Yes Status: Chronic (5) HLD (hyperlipidemia) Current Visit: Yes Status: Chronic (6) HTN (hypertension) Current Visit: Yes Status: Chronic (7) Atrial fibrillation Current Visit: Yes Status: Chronic (8) Respiratory failure Current Visit: Yes Status: Acute - Time Spent with Patient Total time spent is greater than 50% in coordination of care (as documented) at patient's floor/unit and/or counseling patient: Internal Medicine: Result - Labs CBC & Chem 7: 04/06/18 03:10 04/06/18 03:10 Labs: Short CBC 04/06/18 Range/Units 03:10 WBC 10.0 (4.3-11.1) K/mcL Hgb 11.1 L (12.9-16.9) g/dL Hct 36.5 L (37.5-50.1) % Plt Count 317 (140-400) K/mcL BMP 04/06/18 03:10 Sodium 136 Potassium 4.0 Chloride 104 Carbon Dioxide 24 BUN 12 Creatinine 0.92 Glucose 216 H Calcium 8.2 L - ABG Interpretation ABG results: PT/INR, D-dimer PT 16.1 Seconds (9.4-12.1) H 04/05/18 00:37 - Attending Attestation The history, physical exam, and medical decision making was performed by the medical student Adan either while I was physically present and actively involved or I personally re-performed the exam and medical decision making. I have verified the accuracy of the medical student's documentation with regards to the history, physical exam findings, and medical decision making. Mr Taveras presented to ED with complaints of cough and difficulty breathing. Evaluated and admitted for pneumonia. He has a hx of chronic afib on AC and anemia. Previous provider doumentation notes he recently had colonoscopy. Awake, in bed. No sob at this time, has O2 nc only in one nostril and o2 sat 95%. + cough and wheezing, overall improving. still some sob on exertion. Denies fevers, chills, nausea, emesis. No chest pain, palpitations, orthopnea, le edema. gen- alert, awake,appears stated age eyes- pupils equal round cv- reg rate and irreg/irreg rhythm, normal s1,s2, no murmurs appreciated, no le edema, no jvd lungs- diminished throughout, no wheezing, rhonchi or crackles appreciated, normal resp effort on o2 nc neuro- AAOx3 A/P Acute hypoxic resp failure as evidenced by need for supplemental O2 NC improved- likely due to pneumonia. Oxygen supplement and weaned down to 1L NC this morning, home O2 eval in prep for dc Sepsis related to pneumonia, resolved- afebrile, lactate wnl, leukocytosis resolved, ucx neg, bl cxs ngtd, cont abx as below Possible asp pneumonia, organism unknown- azithro + zosyn, nebs, not on steroids, clinically improving, RERECORDING MIXER eval and no signs of dysphagia, leg/strep/flu/mrsa neg, increase activity and 6 minute walk test Anemia, unclear if acute or acute on chronic vs chronic, may be related to AC (Xarelto)- no recent hgb checked, priors appear wnl, hgb 12 and decrease to 10.8 min this admit, now up trending, improvement with cessation of IVFs, pt recently had outpt colonoscopy per chart review, will cont to monitor for any bleeding, he will require outpt fu for further monitoring and addl work up DM- hold metformin, SSI and accu checks Further diagnoses and plan as per student note dispo- will be to home with Home RN and PT, suspect in next 24 hrs, eval for home o2, pt is not feeling comfortable with dc today due to wheezing and sob with exertion, increase activity encouraged <Phong Arellano W - Last Filed: 04/06/18 13:07> (1) Sepsis Qualifiers: Sepsis type: sepsis due to unspecified organism Qualified Code(s): A41.9 - Sepsis, unspecified organism (2) Pneumonia Qualifiers: Pneumonia type: aspiration pneumonia Aspiration pneumonia type: due to gastric secretions Laterality: bilateral Lung location: lower lobe of lung Qualified Code(s): J69.0 - Pneumonitis due to inhalation of food and vomit (4) COPD (chronic obstructive pulmonary disease) Qualifiers: COPD type: unspecified COPD Qualified Code(s): J44.9 - Chronic obstructive pulmonary disease, unspecified (5) Atrial fibrillation Qualifiers: Atrial fibrillation type: chronic Qualified Code(s): I48.2 - Chronic atrial fibrillation (7) HLD (hyperlipidemia) Qualifiers: Hyperlipidemia type: mixed hyperlipidemia Qualified Code(s): E78.2 - Mixed hyperlipidemia (8) HTN (hypertension) Qualifiers: Hypertension type: essential hypertension Qualified Code(s): I10 - Essential (primary) hypertension (9) Asthma Qualifiers: Qualified Code(s): J45.909 - Unspecified asthma, uncomplicated <Nissa Dean - Last Filed: 04/06/18 14:59> (1) Sepsis Qualifiers: Sepsis type: sepsis due to unspecified organism Qualified Code(s): A41.9 - Sepsis, unspecified organism (2) Pneumonia Qualifiers: Pneumonia type: aspiration pneumonia Aspiration pneumonia type: due to gastric secretions Laterality: bilateral Lung location: lower lobe of lung Qualified Code(s): J69.0 - Pneumonitis due to inhalation of food and vomit (4) COPD (chronic obstructive pulmonary disease) Qualifiers: COPD type: unspecified COPD Qualified Code(s): J44.9 - Chronic obstructive pulmonary disease, unspecified (5) HLD (hyperlipidemia) Qualifiers: Hyperlipidemia type: mixed hyperlipidemia Qualified Code(s): E78.2 - Mixed hyperlipidemia (6) HTN (hypertension) Qualifiers: Hypertension type: essential hypertension Qualified Code(s): I10 - Essential (primary) hypertension (7) Atrial fibrillation Qualifiers: Atrial fibrillation type: chronic Qualified Code(s): I48.2 - Chronic atrial fibrillation (8) Respiratory failure Qualifiers: Chronicity: acute Respiratory failure complication: hypoxia Qualified Code(s): J96.01 - Acute respiratory failure with hypoxia
[2018-04-06] MEDS ORDERED: Magnesium Oxide 400 MG TABLET PO ONE (09:43)
[2018-04-06] MEDS: *HR* Rivaroxaban 10 MG TABLET PO SCH (16:32)
[2018-04-06] MEDS: Ampicillin/Sulbactam 1,500 MG in 0.9 % Sodium Chloride Mini Bag 100 ML IVPB SCH (18:05)
[2018-04-06] MEDS: Azithromycin 250 MG in D5% in Water 250 ML IVPB SCH (21:25)
[2018-04-07] MEDS: Ampicillin/Sulbactam 1,500 MG in 0.9 % Sodium Chloride Mini Bag 100 ML IVPB SCH ×3 (00:31→14:41)
[2018-04-07] MEDS: Levalbuterol Neb 1.25 MG/3 ML IH SCH ×4 (04:16→15:18)
[2018-04-07 05:48] LABS: Hematocrit 37.6 % (37.5-50.1); Hemoglobin 11.3 g/dL (12.9-16.9)
[2018-04-07 06:09] LABS: BUN/Creatinine Ratio 13 (6-26); Blood Urea Nitrogen 11 mg/dL (8-23); Calcium 8.7 mg/dL (8.6-10.3); Carbon Dioxide 24 mEq/L (23-29); Chloride 102 mEq/L (98-107); Glucose 193 mg/dL (70-105); Magnesium 1.5 mg/dL (1.6-2.6); Osmolality,Calculated 287 (280-300); Phosphorous 2.4 mg/dL (2.7-4.5); Potassium 3.8 mEq/L (3.5-5.1); Sodium 136 mEq/L (136-145); eGFR For Non-African Americans > 60 (> 60)
--- NOTE | 2018-04-07 08:37 | Internal Med Progress Note ---
<Phong Arellano - Last Filed: 04/07/18 14:46> Hospitalist Progress Note - Encounter Date of Encounter: 04/07/18 Time of Encounter: 08:00 - Subjective Interval History: Pt seen bedside for follow up for cough and dyspnea. Pt states he feels much better today after receiving his breathing treatment. Denies any pain anywhere. Denies constipation or diarrhea. Denies dysuria or hematuria. Deneis n/v/f/c/schilling/cp. Pt likely to go home today, but still hesitant due to his breathing status. - Exam Vitals: Temp Pulse Resp BP Pulse Ox 98.4 F 101 20 151/85 94 04/07/18 08:11 04/07/18 08:11 04/07/18 08:11 04/07/18 08:11 04/07/18 08:11 Exam: Gen: NAD, eldery male HEENT: neck supple, trachea midline, eyes PERRLA, mucus membranes dry CV: irregular irregular rhythm, no murmur, S1 and S2 present Pulm: expiratory wheezes b/l, no rales or rhonci, accessory muscle use Abd: distended, non tender, no masses, no guarding Extremities: R LE AKA, no swelling, LLE pedal pulse +2/4 Neuro: A&O x4, no focal deficits Psych: normal mood, normal affect - Assessment and Plan (1) Sepsis Current Visit: Yes Status: Resolved Assessment and Plan: -WBC 13.1, tachy of 141, and RR 24 on admission; WBC stablized around 10; pt remains tachy around 110 -likely source of infection is pneumonia -lactic acid 2.5 on admission; down to 1.7 on redraw -Urine culture negative -blood cultures pending x2 -mycoplasma pending -discontinue vanc due to negative MRSA swab -negative flu A/B, legionella, and strep pneumo -change zosyn to unasyn -continue azithromycin for both possible COPD exacerbation and atypical pneumonia if aspiration pneumonia is more likely -strict I/O -daily weights (2) Pneumonia Current Visit: Yes Status: Suspected Assessment and Plan: -CTA in ED: no PE; multifocal bronchopneumonia more so in RLL with possible aspiration pneumonitis -CT head: acute sinusitis otherwise non-acute -blood cultures pending x2 -mycoplasma pending -strep pneumonia, legionella, flu panel negative -MRSA swab negative -discontinue vanc d/t negative MRSA -change zosyn to PO Unasyn for 3 more days of treatment to complete 7 day course of abx -continue azithromycin for both possible COPD exacerbation and atypical pneumonia if aspiration pneumonia is more likely -xopenex Q4h -Home with home healthcare and PT recommends home PT (3) Electrolyte abnormality Current Visit: Yes Status: Resolved Assessment and Plan: -Phos stable -Mg 2+ 1.5 today; 2g IV Mg2+ given -daily BMPs (4) COPD (chronic obstructive pulmonary disease) Current Visit: Yes Status: Chronic Assessment and Plan: -former smoker -on 2L NC O2; humidified -see pneumonia for treatment -restart symbicort today -will give one time dose IV solumedrol -start ipratropium Q6h -will perform 6 min walk test to determine if pt needes O2 at home -monitor breathing status (5) Atrial fibrillation Current Visit: Yes Status: Chronic Assessment and Plan: -CHADS-VASc of 5 -on Xarelto; continue while in hospital -continue home lopressor -monitor anemia status (6) Diabetes mellitus type 2 in nonobese Current Visit: Yes Status: Chronic Assessment and Plan: -glucose 230 on admission -hold metformin -low dose ISS -monitor (7) HLD (hyperlipidemia) Current Visit: Yes Status: Chronic Assessment and Plan: -continue home simvastatin (8) HTN (hypertension) Current Visit: Yes Status: Chronic Assessment and Plan: -continue home BP meds (9) Asthma Current Visit: Yes Status: Acute Assessment and Plan: -xopenex Q4h (10) Anemia Current Visit: No Status: Chronic Assessment and Plan: -Hgb of 11.3 today -may be likely to h/o Xarelto use -monitor DVT Prophylaxis: xarelto - Time Spent with Patient Total time spent is greater than 50% in coordination of care (as documented) at patient's floor/unit and/or counseling patient: 25 - 35 minutes Plan of Care Discussed with: patient Internal Medicine: Result - Labs CBC & Chem 7: 04/07/18 05:09 04/07/18 05:09 Labs: Short CBC 04/07/18 Range/Units 05:09 Hgb 11.3 L (12.9-16.9) g/dL Hct 37.6 (37.5-50.1) % BMP 04/07/18 05:09 Sodium 136 Potassium 3.8 Chloride 102 Carbon Dioxide 24 BUN 11 Creatinine 0.86 Glucose 193 H Calcium 8.7 - ABG Interpretation ABG results: PT/INR, D-dimer PT 16.1 Seconds (9.4-12.1) H 04/05/18 00:37 Consult Discharge Plan - Plan Instructions: Atrial Fibrillation (DC), Asthma (DC), Diabetes Mellitus Type 2 in Adults (DC), Chronic Obstructive Pulmonary Disease (DC), Sepsis (DC), Chronic Hypertension (DC), Anemia (GEN) Referrals: Shasha Lopez CANDY MIXER [Advanced Practice Nurse] - 04/13/18 11:00 am Prescriptions: GuaiFENesin/Dextromethorphan [Robitussin/Dm] 10 ml PO Q6HR PRN #400 ml PRN Reason: Cough Amoxicillin/Clavulanate [Augmentin] 875 mg PO BIDWM 6 Days #12 tablet Azithromycin 250 mg PO DAILY #1 tablet MethylPREDNISolone [MethylPREDNISolone Dose Pack] 4 mg PO TAPER #21 tab <Nissa Dean - Last Filed: 04/07/18 17:32> Hospitalist Progress Note - Encounter Date of Encounter: 04/07/18 - Exam Vitals: Temp Pulse Resp BP Pulse Ox 98.4 F 103 16 134/75 97 04/07/18 16:13 04/07/18 16:13 04/07/18 16:13 04/07/18 16:13 04/07/18 16:13 - Assessment and Plan (1) Sepsis Current Visit: Yes Status: Resolved (2) Pneumonia Current Visit: Yes Status: Suspected (3) Diabetes mellitus type 2 in nonobese Current Visit: Yes Status: Chronic (4) COPD (chronic obstructive pulmonary disease) Current Visit: Yes Status: Chronic (5) HLD (hyperlipidemia) Current Visit: Yes Status: Chronic (6) HTN (hypertension) Current Visit: Yes Status: Chronic (7) Atrial fibrillation Current Visit: Yes Status: Chronic (8) Respiratory failure Current Visit: Yes Status: Acute - Time Spent with Patient Total time spent is greater than 50% in coordination of care (as documented) at patient's floor/unit and/or counseling patient: Internal Medicine: Result - Labs CBC & Chem 7: 04/07/18 05:09 04/07/18 05:09 Labs: Short CBC 04/07/18 Range/Units 05:09 Hgb 11.3 L (12.9-16.9) g/dL Hct 37.6 (37.5-50.1) % BMP 04/07/18 05:09 Sodium 136 Potassium 3.8 Chloride 102 Carbon Dioxide 24 BUN 11 Creatinine 0.86 Glucose 193 H Calcium 8.7 - ABG Interpretation ABG results: PT/INR, D-dimer PT 16.1 Seconds (9.4-12.1) H 04/05/18 00:37 - Attending Attestation The history, physical exam, and medical decision making was performed by the medical student Adan either while I was physically present and actively involved or I personally re-performed the exam and medical decision making. I have verified the accuracy of the medical student's documentation with regards t o the history, physical exam findings, and medical decision making. Mr Taveras presented to ED with complaints of cough and difficulty breathing. Evaluated and admitted for pneumonia based on cTA results. He has a hx of chronic afib on AC and anemia. Previous provider documentation notes he recently had colonoscopy. He was treated with IV abx this admission to cover for possible asp pna, neb treatments and supplemental o2. he is clincially stable without leukocytosis, fever, stable o2 nc 2L requirements. Very lengthy discussions have been had with pt, his , myself, and jig worker regarding dispo plan. He ahs been evaluated by PT on multiple occasions, including extensively on day of dc and found to be independent in his activites with rec for outpt PT, but NOT requiring snf palcement. present at evaluation and ahppy to see his ability to be independent. Social work discussed with family HHC and plan in place and pt also happy with this plan at time of dc. He qualified for home o2 nc and SW set this up prior to dc. He will dc ot home withoutpt fu with pcp and oral abx and steroid taper. Awake, in bed. No sob at this time, o2 nc in place, cough nearly gone, no sputum, denies wheezing currently, notes he has "wheezing up top only" referring to upper airway wheezing on physical exams. Denies fevers, chills, n/v, eating and drinking without difficulty gen- alert, awake,appears stated age cv- reg rate and irreg/irreg rhythm, normal s1,s2, no murmurs appreciated, no le edema, no jvd lungs- improved aeration, no wheezing, rhonchi or crackles appreciated, occassional upper airway exp wheeze which resolves when pt instructed to through his mouth, normal resp effort on o2 nc neuro- AAOx3 abd- soft, nt, nd, + bs A/P Acute hypoxic resp failure as evidenced by need for supplemental O2 NC improved/stable- likely due to pneumonia. home o2 eval and rx for home o2 nc 2L Sepsis related to pneumonia, resolved- afebrile, lactate wnl, leukocytosis resolved, ucx neg, bl cxs ngtd,legionella/strep/flu neg Possible asp pneumonia, organism unknown- azithro + zosyn inpt, nebs, does of IV steroid today due to patients concern that he may have wheezing on dc to home in between treatments of nebs, clinically improving and stable, SOFTWARE ENGINEERING MANAGER eval and no signs of dysphagia, leg/strep/flu/mrsa neg, some sob on exertion is highly lik clarence due to deconditioning, did well with PT today, home pt, home o2, resume home nebs, mycoplasma pending at dc, clinically improved with tx -dc with augmentin + last day dose of azithro, medrol dose pack, cough syrup Anemia, unclear if acute or acute on chronic vs chronic, may be related to AC (Xarelto)- no recent hgb checked, priors appear wnl, hgb 12 and decrease to 10.8 min this admit, now up trending to 11s, improvement with cessation of IVFs, pt recently had outpt colonoscopy per chart review, will cont to monitor for any bleeding, he will require outpt fu for further monitoring and addl work up DM- hold metformin, SSI and accu checks, resume home metformin tomorrow Hypomagnesemia- Iv repletion prior to dc Further diagnoses and plan as per student note dispo- will be to home with Home RN and PT <Phong Arellano W - Last Filed: 04/07/18 14:46> (1) Sepsis Qualifiers: Sepsis type: sepsis due to unspecified organism Qualified Code(s): A41.9 - Sepsis, unspecified organism (2) Pneumonia Qualifiers: Pneumonia type: aspiration pneumonia Aspiration pneumonia type: due to gastric secretions Laterality: bilateral Lung location: lower lobe of lung Qualified Code(s): J69.0 - Pneumonitis due to inhalation of food and vomit (4) COPD (chronic obstructive pulmonary disease) Qualifiers: COPD type: unspecified COPD Qualified Code(s): J44.9 - Chronic obstructive pulmonary disease, unspecified (5) Atrial fibrillation Qualifiers: Atrial fibrillation type: chronic Qualified Code(s): I48.2 - Chronic atrial fibrillation (7) HLD (hyperlipidemia) Qualifiers: Hyperlipidemia type: mixed hyperlipidemia Qualified Code(s): E78.2 - Mixed hyperlipidemia (8) HTN (hypertension) Qualifiers: Hypertension type: essential hypertension Qualified Code(s): I10 - Essential (primary) hypertension (9) Asthma Qualifiers: Qualified Code(s): J45.909 - Unspecified asthma, uncomplicated <Nissa Dean M - Last Filed: 04/07/18 17:32> (1) Sepsis Qualifiers: Sepsis type: sepsis due to unspecified organism Qualified Code(s): A41.9 - Sepsis, unspecified organism (2) Pneumonia Qualifiers: Pneumonia type: aspiration pneumonia Aspiration pneumonia type: due to gastric secretions Laterality: bilateral Lung location: lower lobe of lung Qualified Code(s): J69.0 - Pneumonitis due to inhalation of food and vomit (4) COPD (chronic obstructive pulmonary disease) Qualifiers: COPD type: unspecified COPD Qualified Code(s): J44.9 - Chronic obstructive pulmonary disease, unspecified (5) HLD (hyperlipidemia) Qualifiers: Hyperlipidemia type: mixed hyperlipidemia Qualified Code(s): E78.2 - Mixed hyperlipidemia (6) HTN (hypertension) Qualifiers: Hypertension type: essential hypertension Qualified Code(s): I10 - Essential (primary) hypertension (7) Atrial fibrillation Qualifiers: Atrial fibrillation type: chronic Qualified Code(s): I48.2 - Chronic atrial fibrillation (8) Respiratory failure Qualifiers: Chronicity: acute Respiratory failure complication: hypoxia Qualified Code(s): J96.01 - Acute respiratory failure with hypoxia
[2018-04-07] MEDS: Insulin LISPRO 300 UNITS/3 ML VIAL SQ SCH ×2 (10:15→11:36)
[2018-04-07] MEDS ORDERED: Budesonide/Formoterol 160/4.5 1 PUFF INH IH SCH (11:15)
[2018-04-07] MEDS ORDERED: MethylPREDNISolone 40 MG/ML VIAL IVP SCH (11:15)
[2018-04-07] MEDS: Ipratropium Neb 0.5 MG NEBULIZER IH SCH ×2 (11:42→15:18)
--- NOTE | 2018-04-07 14:18 | Discharge Summary ---
<Dandre Gautam - Last Filed: 04/07/18 16:00> Orders not resulted at time of discharge: Pending orders 04/04/18 11:20 Culture,Blood [BC] Stat 04/04/18 18:43 Mycoplasma pneumoniae IgG IgM Routine Date of Encounter: 04/07/18 - Discharge Diagnosis (1) Sepsis Status: Resolved Qualifiers: Sepsis type: sepsis due to unspecified organism Qualified Code(s): A41.9 - Sepsis, unspecified organism (2) Pneumonia Status: Suspected Qualifiers: Pneumonia type: aspiration pneumonia Aspiration pneumonia type: due to gastric secretions Laterality: bilateral Lung location: lower lobe of lung Qualified Code(s): J69.0 - Pneumonitis due to inhalation of food and vomit (3) 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 (4) COPD (chronic obstructive pulmonary disease) Status: Chronic Qualifiers: COPD type: unspecified COPD Qualified Code(s): J44.9 - Chronic obstructive pulmonary disease, unspecified (5) HLD (hyperlipidemia) Status: Chronic Qualifiers: Hyperlipidemia type: mixed hyperlipidemia Qualified Code(s): E78.2 - Mixed hyperlipidemia (6) HTN (hypertension) Status: Chronic Qualifiers: Hypertension type: essential hypertension Qualified Code(s): I10 - Essential (primary) hypertension (7) Atrial fibrillation Status: Chronic Qualifiers: Atrial fibrillation type: chronic Qualified Code(s): I48.2 - Chronic atrial fibrillation (8) Respiratory failure Status: Acute Qualifiers: Chronicity: acute Respiratory failure complication: hypoxia Qualified Code(s): J96.01 - Acute respiratory failure with hypoxia Hospital course: Mr. Taveras is a 77 year old male - Time Spent with Patient Total time spent providing and/or coordinating discharge services: - Discharge Medications Prescriptions: GuaiFENesin/Dextromethorphan [Robitussin/Dm] 10 ml PO Q6HR PRN #400 ml PRN Reason: Cough Amoxicillin/Clavulanate [Augmentin] 875 mg PO BIDWM 6 Days #12 tablet Azithromycin 250 mg PO DAILY #1 tablet MethylPREDNISolone [MethylPREDNISolone Dose Pack] 4 mg PO TAPER #21 tab Home Medications: Albuterol Sulfate [Proair Hfa] 1 puff IH QID PRN 08/13/15 [History] Cyanocobalamin (Vitamin B-12) [Vitamin B-12] 1,000 mcg SL DAILY 08/13/15 [Hist ory] Omeprazole [PriLOSEC] 20 mg PO DAILY 08/13/15 [History] Rivaroxaban [Xarelto] 20 mg PO DAILY 08/13/15 [History] Fluticasone Propionate [Allergy Relief] 1 spr NS DAILY 04/04/18 [History] Metformin HCl 1,000 mg PO BID 04/04/18 [History] Metoprolol Tartrate 50 mg PO BID 04/04/18 [History] Simvastatin [Zocor] 40 mg PO QPM 04/04/18 [History] Amoxicillin/Clavulanate [Augmentin] 875 mg PO BIDWM 6 Days #12 tablet 04/07/18 [Rx] Azithromycin 250 mg PO DAILY #1 tablet 04/07/18 [Rx] Budesonide/Formoterol 160/4.5 [Symbicort 160/4.5] 2 puff IH BIDR inh 04/07/18 [Rx] GuaiFENesin/Dextromethorphan [Robitussin/Dm] 10 ml PO Q6HR PRN #400 ml 04/07/18 [Rx] MethylPREDNISolone [MethylPREDNISolone Dose Pack] 4 mg PO TAPER #21 tab 04/07/18 [Rx] Allergies/Adverse Reactions: Allergy/AdvReac Type Severity Reaction Status Date / Time acetaminophen [From Percocet] Allergy Hallucinati Verified 10/13/17 11:31 ng adhesive tape Allergy See Verified 10/13/17 11:31 Comments aspirin [From Percodan] Allergy Hallucinati Verified 10/13/17 11:31 ng Oxycodone [From Percocet] Allergy Hallucinati Verified 10/13/17 11:31 ng Date of admission: 04/04/18 17:51 Primary care physician: Steven Fonseca DO Consults: 04/04/18 17:44 Consult to Physical Therapy [CONS] Routine Comment: Evaluate, develop and implement POC Reason for Consult: weakness Does patient have active BEDREST order?: No Is patient medically & hemodynamically stable?: Yes Patient assessed for mobility or mobilized this visit?: No 04/05/18 11:57 Consult to Respiratory Therapy [CONS] Routine Reason for Consult: humidified oxygen Time Notified: 11:58 Call Completed: Yes - Constitutional Vitals: Temp Pulse Resp BP Pulse Ox 97.8 F 104 20 122/98 96 04/07/18 11:24 04/07/18 11:24 04/07/18 15:19 04/07/18 11:24 04/07/18 15:19 - Patient Status Disposition: Home Health Service Condition: Good - Discharge Instructions Instructions: Atrial Fibrillation (DC), Asthma (DC), Diabetes Mellitus Type 2 in Adults (DC), Chronic Obstructive Pulmonary Disease (DC), Sepsis (DC), Chronic Hypertension (DC), Anemia (GEN) Follow Up With: Shasha Lopez HAND MODEL [Advanced Practice Nurse] - 04/13/18 11:00 am Forms: ED Satisfaction Letter <Phong Arellano W - Last Filed: 04/07/18 16:23> - NOTES TO OUTPATIENT PROVIDER Notes to Outpatient Provider: Will go home with oxygen. Will need follow up for re-evaluation after medications are complete. Sent home with 1 day of Azithromycin, 6 days of Augmentin, and a Medrol dose pack. Orders not resulted at time of discharge: Pending orders 04/04/18 11:20 Culture,Blood [BC] Stat 04/04/18 18:43 Mycoplasma pneumoniae IgG IgM Routine Date of Encounter: 04/07/18 Time of Encounter: 08:00 - Discharge Diagnosis (1) Sepsis Priority: Primary Status: Resolved Assessment and Plan: -WBC 13.1, tachy of 141, and RR 24 on admission; WBC stablized around 10; pt remains tachy around 110 -resolved since admission -lactic acid 2.5 on admission; down to 1.7 on redraw -Urine culture negative -blood cultures negative x2 -mycoplasma pending -discontinue vanc due to negative MRSA swab -negative flu A/B, legionella, and strep pneumo -change unasyn to Augmentin upon discharge -continue azithromycin for both possible COPD exacerbation and atypical pneumonia if aspiration pneumonia is more likely; day 4 of treatment Qualifiers: Sepsis type: sepsis due to unspecified organism Qualified Code(s): A41.9 - Sepsis, unspecified organism (2) Pneumonia Priority: Secondary Status: Suspected Assessment and Plan: -CTA in ED: no PE; multifocal bronchopneumonia more so in RLL with possible aspiration pneumonitis -CT head: acute sinusitis otherwise non-acute -blood cultures negative x2 -mycoplasma pending -strep pneumonia, legionella, flu panel negative -MRSA swab negative -discontinue vanc d/t negative MRSA -change unasyn to PO augmentin upon discharge -continue azithromycin for both possible COPD exacerbation and atypical pneumonia if aspiration pneumonia is more likely; day 4 of treatment -xopenex Q4h; continue duonebs outpatient -Medrol dose pack upon discharge; taper -continue symbacort at home -continue Robtussin/DM -Home with home healthcare and PT recommends home PT Qualifiers: Pneumonia type: aspiration pneumonia Aspiration pneumonia type: due to gastric secretions Laterality: bilateral Lung location: lower lobe of lung Qualified Code(s): J69.0 - Pneumonitis due to inhalation of food and vomit (3) Electrolyte abnormality Priority: Secondary Status: Resolved Assessment and Plan: -Phos stable -Mg 2+ 1.5 today; 2g IV Mg2+ given (4) COPD (chronic obstructive pulmonary disease) Priority: Secondary Status: Chronic Assessment and Plan: -former smoker -on 2L NC O2; humidified; will be discharged with O2 -see pneumonia for treatment -restart symbicort today -will give one time dose IV solumedrol -start ipratropium Q6h -will continue home breathing treatments and inhalers upon discharge Qualifiers: COPD type: unspecified COPD Qualified Code(s): J44.9 - Chronic obstructive pulmonary disease, unspecified (5) Atrial fibrillation Priority: Secondary Status: Chronic Assessment and Plan: -CHADS-VASc of 5 -on Xarelto; continue while in hospital -continue home lopressor Qualifiers: Atrial fibrillation type: chronic Qualified Code(s): I48.2 - Chronic atrial fibrillation (6) Diabetes mellitus type 2 in nonobese Priority: Secondary Status: Chronic Assessment and Plan: -glucose 230 on admission -hold metformin -low dose ISS -monitor (7) HLD (hyperlipidemia) Priority: Secondary Status: Chronic Assessment and Plan: -continue home simvastatin Qualifiers: Hyperlipidemia type: mixed hyperlipidemia Qualified Code(s): E78.2 - Mixed hyperlipidemia (8) HTN (hypertension) Priority: Secondary Status: Chronic Assessment and Plan: -continue home BP meds Qualifiers: Hypertension type: essential hypertension Qualified Code(s): I10 - Essential (primary) hypertension (9) Asthma Priority: Secondary Status: Acute Assessment and Plan: -continue home breathing treatments and inhalers upon discharge Qualifiers: Qualified Code(s): J45.909 - Unspecified asthma, uncomplicated (10) Anemia Priority: Secondary Status: Chronic Comments: -Hgb of 11.3 today -may be likely to h/o Xarelto use -no further work up needed Hospital course: Mr. Taveras is a 77 year old male with PMH of AFib, COPD, asthma, PAD, DMII, GERD, HLD, HTN, and aortic aneurysm who presents with worsening cough for the past 7-10 days. Pt stated he had a wet, mucus producing cough producing clear mucus. The cough turned dry 3 days prior to admission. He states he feels short of breath and is currently on 1.5L O2 NC, but doesn't feel like that is helping. He is not on O2 at home. Had a bout of bronchitis 15 years ago, but nothing to this extent. Labs were drawn in the ED and showed WBC of 13.1 and Mg was low at 1.2. Mag sulfate was given. Lactic acid of 2.5 on admission and 1.7 on redraw. UA negative. CTA showed no PE and multifocal broncopneumonia more in RLL with possible aspiration pneumonitis. Head CT was non-acute. Started on Vanc and Maxipime, but Maxipime was discontinued and Zosyn and Azithromycin were added. MRSA swab was negative, so Vanc was discontinued. Flu panel, urine culture, blood cultures, legionella were all negative. Pt was given breathing treatments and steroids. Home meds will be continued upon discharge. Pt qualified for home O2 and will be discharged with it. Also, discharged with Robitussin/DM, Medrol dose pack taper, 6 days of Augmentin, and 1 day of Azithromycin. Discharge discussed with: patient, family - Time Spent with Patient Total time spent providing and/or coordinating discharge services: Greater than 30 minutes Date of admission: 04/04/18 17:51 Primary care physician: Steven Fonseca, Consults: 04/04/18 17:44 Consult to Physical Therapy [CONS] Routine Comment: Evaluate, develop and implement POC Reason for Consult: weakness Does patient have active BEDREST order?: No Is patient medically & hemodynamically stable?: Yes Patient assessed for mobility or mobilized this visit?: No 04/05/18 11:57 Consult to Respiratory Therapy [CONS] Routine Reason for Consult: humidified oxygen Time Notified: 11:58 Call Completed: Yes Discharging clinician: Nissa Dean Anticipated date of discharge: 04/07/18 - Constitutional Vitals: Temp Pulse Resp BP Pulse Ox 97.8 F 104 18 122/98 96 04/07/18 11:24 04/07/18 11:24 04/07/18 11:42 04/07/18 11:24 04/07/18 11:52 General appearance: Present: mild distress, A&O X 3, answers questions appropriately Exam: Gen: NAD, eldery male HEENT: neck supple, trachea midline, eyes PERRLA, mucus membranes dry CV: irregular irregular rhythm, no murmur, S1 and S2 present Pulm: expiratory wheezes b/l, no rales or rhonci, accessory muscle use Abd: distended, non tender, no masses, no guarding Extremities: R LE AKA, no swelling, LLE pedal pulse +2/4 Neuro: A&O x4, no focal deficits Psych: normal mood, normal affect - Patient Status Functional capacity at discharge: independent ambulation Overall status at discharge: patient is progressing back to baseline - Diet and Activity Activity: increase activity as tolerated, wear oxygen at all times Diet: advance to your usual diet <Nissa Dean - Last Filed: 04/07/18 17:35> - NOTES TO OUTPATIENT PROVIDER Notes to Outpatient Provider: Additionally he appears to have chronic anemia and mention was made that he had recent cscope. Defer further testing to outpt providers as hgb stable here without any signs of active bleeding. Orders not resulted at time of discharge: Pending orders 04/04/18 11:20 Culture,Blood [BC] Stat 04/04/18 18:43 Mycoplasma pneumoniae IgG IgM Routine Date of Encounter: 04/07/18 - Discharge Diagnosis (1) Sepsis Status: Resolved Qualifiers: Sepsis type: sepsis due to unspecified organism Qualified Code(s): A41.9 - Sepsis, unspecified organism (2) Pneumonia Status: Suspected Qualifiers: Pneumonia type: aspiration pneumonia Aspiration pneumonia type: due to gastric secretions Laterality: bilateral Lung location: lower lobe of lung Qualified Code(s): J69.0 - Pneumonitis due to inhalation of food and vomit (3) 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 (4) COPD (chronic obstructive pulmonary disease) Status: Chronic Qualifiers: COPD type: unspecified COPD Qualified Code(s): J44.9 - Chronic obstructive pulmonary disease, unspecified (5) HLD (hyperlipidemia) Status: Chronic Qualifiers: Hyperlipidemia type: mixed hyperlipidemia Qualified Code(s): E78.2 - Mixed hyperlipidemia (6) HTN (hypertension) Status: Chronic Qualifiers: Hypertension type: essential hypertension Qualified Code(s): I10 - Essential (primary) hypertension (7) Atrial fibrillation Status: Chronic Qualifiers: Atrial fibrillation type: chronic Qualified Code(s): I48.2 - Chronic atrial fibrillation (8) Respiratory failure Status: Acute Qualifiers: Chronicity: acute Respiratory failure complication: hypoxia Qualified Code(s): J96.01 - Acute respiratory failure with hypoxia Hospital course: Mr. Taveras is a 77 year old male - Time Spent with Patient Total time spent providing and/or coordinating discharge services: Date of admission: 04/04/18 17:51 Primary care physician: Steven Fonseca DO Consults: 04/04/18 17:44 Consult to Physical Therapy [CONS] Routine Comment: Evaluate, develop and implement POC Reason for Consult: weakness Does patient have active BEDREST order?: No Is patient medically & hemodynamically stable?: Yes Patient assessed for mobility or mobilized this visit?: No 04/05/18 11:57 Consult to Respiratory Therapy [CONS] Routine Reason for Consult: humidified oxygen Time Notified: 11:58 Call Completed: Yes - Constitutional Vitals: Temp Pulse Resp BP Pulse Ox 98.4 F 103 16 134/75 97 04/07/18 16:13 04/07/18 16:13 04/07/18 16:13 04/07/18 16:13 04/07/18 16:13 - Attending Attestation The history, physical exam, and medical decision making was performed by the medical student Adan either while I was physically present and actively involved or I personally re-performed the exam and medical decision making. I have verified the accuracy of the medical student's documentation with regards to the history, physical exam findings, and medical decision making. Mr Taveras presented to ED with complaints of cough and difficulty breathing. Evaluated and admitted for pneumonia based on cTA results. He has a hx of chronic afib on AC and anemia. Previous provider documentation notes he recently had colonoscopy. He was treated with IV abx this admission to cover for possible asp pna, neb treatments and supplemental o2. he is clincially stable without leukocytosis, fever, stable o2 nc 2L requirements. Very lengthy discussions have been had with pt, his , myself, and electric utility lineworker regarding dispo plan. He ahs been evaluated by PT on multiple occasions, including extensively on day of dc and found to be independent in his activites with rec for outpt PT, but NOT requiring snf palcement. present at evaluation and ahppy to see his ability to be independent. Social work discussed with family HHC and plan in place and pt also happy with this plan at time of dc. He qualified for home o2 nc and SW set this up prior to dc. He will dc ot home withoutpt fu with pcp and oral abx and steroid taper. Awake, in bed. No sob at this time, o2 nc in place, cough nearly gone, no sputum, denies wheezing currently, notes he has "wheezing up top only" referring to upper airway wheezing on physical exams. Denies fevers, chills, n/v, eating and drinking without difficulty gen- alert, awake,appears stated age cv- reg rate and irreg/irreg rhythm, normal s1,s2, no murmurs appreciated, no le edema, no jvd lungs- improved aeration, no wheezing, rhonchi or crackles appreciated, occassional upper airway exp wheeze which resolves when pt instructed to through his mouth, normal resp effort on o2 nc neuro- AAOx3 abd- soft, nt, nd, + bs A/P Acute hypoxic resp failure as evidenced by need for supplemental O2 NC improved/stable- likely due to pneumonia. 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 and no signs of dysphagia, leg/strep/flu/mrsa neg, some sob on exertion is highly likely due to deconditioning, did well with PT today, home pt, home o2, resume home nebs, mycoplasma pending at dc, clinically improved with tx -dc with augmentin + last day dose of azithro, medrol dose pack, cough syrup Anemia, unclear if acute or acute on chronic vs chronic, may be related to AC (Xarelto)- no recent hgb checked, priors appear wnl, hgb 12 and decrease to 10.8 min this admit, now up trending to 11s, improvement with cessation of IVFs, pt recently had outpt colonoscopy per chart review, will cont to monitor for any bleeding, he will require outpt fu for further monitoring and addl work up DM- hold metformin, SSI and accu checks, resume home metformin tomorrow Hypomagnesemia- Iv repletion prior to dc Further diagnoses and plan as per student note dispo- will be to home with Home RN and PT
--- NOTE | 2018-04-07 14:19 | Physician Discharge Referral ---
Home Health/Hosp Referral Info Transfer to: Home Health Provider in Charge Post Discharge: PCP - Diagnosis (1) Sepsis Priority: Primary Status: Resolved (2) Pneumonia Priority: Primary Status: Suspected (3) Diabetes mellitus type 2 in nonobese Priority: Secondary Status: Chronic (4) COPD (chronic obstructive pulmonary disease) Priority: Secondary Status: Chronic (5) HLD (hyperlipidemia) Priority: Secondary Status: Chronic (6) HTN (hypertension) Priority: Secondary Status: Chronic (7) Atrial fibrillation Priority: Secondary Status: Chronic (8) Respiratory failure Priority: Primary Status: Acute - Respiratory Orders Oxygen / L per min (2L) Smoking Cessation: Smoking cessation has been advised. For more information, call the [place] Tobacco Quit Line at 0-772-AIKR-NOW. - Diet/Nutrition Diet/Nutrition Orders: Cardiac, No Concentrated Sweets - Activity Activity Orders: Up ad sayra, Walker - Services Needed Following services are medically necessary services: Home Health Aide, Physical Therapy, Occupational Therapy, Med Social Work - Transfer Medications Prescriptions: GuaiFENesin/Dextromethorphan [Robitussin/Dm] 10 ml PO Q6HR PRN #400 ml PRN Reason: Cough Amoxicillin/Clavulanate [Augmentin] 875 mg PO BIDWM 6 Days #12 tablet Azithromycin 250 mg PO DAILY #1 tablet MethylPREDNISolone [MethylPREDNISolone Dose Pack] 4 mg PO TAPER #21 tab Home Medications: Albuterol Sulfate [Proair Hfa] 1 puff IH QID PRN 08/13/15 [History] Cyanocobalamin (Vitamin B-12) [Vitamin B-12] 1,000 mcg SL DAILY 08/13/15 [Hist ory] Omeprazole [PriLOSEC] 20 mg PO DAILY 08/13/15 [History] Rivaroxaban [Xarelto] 20 mg PO DAILY 08/13/15 [History] Fluticasone Propionate [Allergy Relief] 1 spr NS DAILY 04/04/18 [History] Metformin HCl 1,000 mg PO BID 04/04/18 [History] Metoprolol Tartrate 50 mg PO BID 04/04/18 [History] Simvastatin [Zocor] 40 mg PO QPM 04/04/18 [History] Amoxicillin/Clavulanate [Augmentin] 875 mg PO BIDWM 6 Days #12 tablet 04/07/18 [Rx] Azithromycin 250 mg PO DAILY #1 tablet 04/07/18 [Rx] Budesonide/Formoterol 160/4.5 [Symbicort 160/4.5] 2 puff IH BIDR inh 04/07/18 [Rx] GuaiFENesin/Dextromethorphan [Robitussin/Dm] 10 ml PO Q6HR PRN #400 ml 04/07/18 [Rx] MethylPREDNISolone [MethylPREDNISolone Dose Pack] 4 mg PO TAPER #21 tab 04/07/18 [Rx] Allergies/Adverse Reactions: Allergy/AdvReac Type Severity Reaction Status Date / Time acetaminophen [From Percocet] Allergy Hallucinati Verified 10/13/17 11:31 ng adhesive tape Allergy See Verified 10/13/17 11:31 Comments aspirin [From Percodan] Allergy Hallucinati Verified 10/13/17 11:31 ng Oxycodone [From Percocet] Allergy Hallucinati Verified 10/13/17 11:31 ng Certification: Further, I certify that my clinical findings support that this patient is homebound (i.e. absences from home require considerable and taxing effort and are for medical reasons or protestant services or infrequently or short duration when for other reasons) because: Homebound Reason: Patient requires assistance of a person or device to safely leave home Attestation: My signature below is to certify that this patient is under my care and that I, or nurse practitioner, or a physician's actuarial assistant working with me, has a [id number] encounter with this patient.
[2018-04-07 16:22] VITALS: BP 134/75
[2018-04-07] MEDS ORDERED: Azithromycin 250 MG TABLET PO SCH (21:00)
[2018-04-08 12:43] LABS: Mycoplasma pneumoniae IgG 0.15 U/L (<=0.09)
== END 2018-04-07 18:44 | disposition home health service (06) | DRG 871 ==
LOC: EMEROOARM 10:40 → 2NENU 10:40 → SUATTDRO 15:24 → 2NENU 16:27 → SUATTDRO 17:51
PROVIDERS: ADMIT Internal Medicine; ATTEND Internal Medicine

== ENCOUNTER 2019-06-24 12:04 | Inpatient (IN) ==
[2019-06-24] MEDS ORDERED: Ipratropium/Albuterol Neb 3 ML IH ONE ×2 (12:12→13:51)
[2019-06-24] MEDS ORDERED: 0.9 % Sodium Chloride 250 ML IVC ONE (12:12)
[2019-06-24] MEDS ORDERED: methylPREDNISolone 125 MG/2 ML VIAL IVP ONE (12:12)
[2019-06-24 12:48] LABS: Basophils # 0.1 K/mcL (0.0-0.2); Basophils % 0.4 %; Eosinophils # 0.1 K/mcL (0.0-0.6); Eosinophils % 0.9 %; Hematocrit 38.4 % (37.5-50.1); Hemoglobin 11.5 g/dL (12.9-16.9); Immature Granulocytes % 0.6 % (0-4); Lymphocytes # 1.1 K/mcL (0.6-4.6); Lymphocytes % 8.7 %; Mean Corpuscular HGB Conc 29.9 g/dL (31.6-35.5); Mean Corpuscular Hemoglobin 24.1 pg (28.0-33.3); Mean Corpuscular Volume 80.5 fL (83.0-100.0); Mean Platelet Volume 11.8 fL (9.4-12.4); Monocytes # 1.4 K/mcL (0.0-1.3); Neutrophils # 9.9 K/mcL (1.6-8.9); Platelet Count 276 K/mcL (140-400); Red Blood Count 4.77 M/mcL (4.19-5.50); Red Cell Distribution Width 17.4 % (11.5-14.5); Segmented Neutrophils % 78.4 %; White Blood Count 12.7 K/mcL (4.3-11.1)
[2019-06-24 12:58] LABS: INR 1.5; Prothrombin Time 17.6 Seconds (9.4-12.1)
[2019-06-24 13:01] LABS: Activated Partial Thrombo Time 31.3 Seconds (26.0-36.0)
[2019-06-24 13:09] LABS: D-Dimer < 215 ng/mLFEU (0-500)
[2019-06-24 13:13] LABS: Alanine Aminotransferase 17 Units/L (7-52); Albumin 3.4 g/dL (3.5-5.7); Albumin/Globulin Ratio 1.5 (1.1-2.2); Alkaline Phosphatase 83 Units/L (34-104); Aspartate Amino Transferase 11 Units/L (13-39); BUN/Creatinine Ratio 16 (6-26); Bilirubin,Total 0.8 mg/dL (0.3-1.0); Blood Urea Nitrogen 16 mg/dL (8-23); Calcium 8.7 mg/dL (8.6-10.3); Carbon Dioxide 27 mEq/L (23-29); Chloride 99 mEq/L (98-107); Globulin 2.2 g/dL (2.4-3.5); Glucose 275 mg/dL (70-105); Osmolality,Calculated 293 (280-300); Potassium 4.5 mEq/L (3.5-5.1); Sodium 136 mEq/L (136-145); Total Protein 5.6 g/dL (6.4-8.9); Troponin I < 0.03 ng/mL (< 0.04); eGFR For African Americans > 60 (> 60); eGFR For Non-African Americans > 60 (> 60)
[2019-06-24] MEDS ORDERED: Azithromycin 500 MG in 0.9 % Sodium Chloride 250 ML IVPB ONE (14:05)
[2019-06-24 14:13] LABS: ABG Base Excess 3 mEq/L (-2 to 3); ABG HCO3 27 mEq/L (21-27); ABG Oxygen Saturation 97 % (95-98); ABG PCO2 39 mmHg (35-45); ABG PH 7.45 pH Units (7.32-7.45); ABG PO2 88 mmHg (85-104); ABG TCO2 28 mEq/L (20-26)
[2019-06-24] MEDS ORDERED: Albuterol 2.5 MG/3 ML NEBULIZER IH PRN (15:31)
[2019-06-24] MEDS ORDERED: D5% in Water 1,000 ML IVC PRN (15:53)
[2019-06-24] MEDS ORDERED: *HR* Dextrose 50 % in Water (Syg) 50 ML SYRINGE IVP PRN (15:53)
[2019-06-24] MEDS ORDERED: Dextrose Gel 15 GM/37.5 ML TUBE PO PRN ×2 (15:53)
[2019-06-24] MEDS: Ipratropium/Albuterol Neb 3 ML IH SCH ×3 (15:54→23:13)
[2019-06-24] MEDS ORDERED: Insulin LISPRO 300 UNITS/3 ML VIAL SQ SCH ×2 (16:30→21:00)
[2019-06-24] MEDS ORDERED: Insulin Human Regular 10 UNIT in 0.9 % Sodium Chloride 10 ML IV ONE (23:24)
[2019-06-25] MEDS: Ipratropium/Albuterol Neb 3 ML IH SCH ×2 (04:33→07:24)
[2019-06-25 06:22] LABS: Basophils % 0.1 %; Hematocrit 35.9 % (37.5-50.1); Immature Granulocytes % 0.6 % (0-4); Lymphocytes # 0.6 K/mcL (0.6-4.6); Lymphocytes % 4.4 %; Mean Corpuscular HGB Conc 30.6 g/dL (31.6-35.5); Mean Corpuscular Hemoglobin 24.1 pg (28.0-33.3); Mean Corpuscular Volume 78.6 fL (83.0-100.0); Mean Platelet Volume 11.6 fL (9.4-12.4); Monocytes # 0.8 K/mcL (0.0-1.3); Monocytes % 6.7 %; Neutrophils # 10.9 K/mcL (1.6-8.9); Platelet Count 315 K/mcL (140-400); Red Blood Count 4.57 M/mcL (4.19-5.50); Red Cell Distribution Width 17.2 % (11.5-14.5); Segmented Neutrophils % 88.2 %; White Blood Count 12.4 K/mcL (4.3-11.1)
[2019-06-25 06:48] LABS: Alanine Aminotransferase 19 Units/L (7-52); Albumin 3.4 g/dL (3.5-5.7); Albumin/Globulin Ratio 1.5 (1.1-2.2); Alkaline Phosphatase 85 Units/L (34-104); Aspartate Amino Transferase 8 Units/L (13-39); BUN/Creatinine Ratio 21 (6-26); Bilirubin,Total 0.5 mg/dL (0.3-1.0); Blood Urea Nitrogen 23 mg/dL (8-23); Calcium 8.9 mg/dL (8.6-10.3); Carbon Dioxide 27 mEq/L (23-29); Chloride 100 mEq/L (98-107); Globulin 2.2 g/dL (2.4-3.5); Glucose 399 mg/dL (70-105); Osmolality,Calculated 298 (280-300); Potassium 4.8 mEq/L (3.5-5.1); Sodium 134 mEq/L (136-145); Total Protein 5.6 g/dL (6.4-8.9); eGFR For African Americans > 60 (> 60); eGFR For Non-African Americans > 60 (> 60)
[2019-06-25] MEDS ORDERED: *HR* Metoprolol 5 MG/5 ML VIAL IVP ONE ×2 (08:25→10:32)
[2019-06-25] MEDS: Azithromycin 250 MG TABLET PO SCH (08:56)
[2019-06-25] MEDS: Insulin LISPRO 300 UNITS/3 ML VIAL SQ SCH ×4 (08:57→20:25)
[2019-06-25] MEDS: predniSONE 20 MG TABLET PO SCH (08:57)
[2019-06-25] MEDS ORDERED: *HR* Rivaroxaban 10 MG TABLET PO SCH (09:00)
[2019-06-25] MEDS ORDERED: Metoprolol XL (24 HR) Succ 50 MG TAB.ER.24H PO SCH (09:00)
[2019-06-25] MEDS: Ipratropium Neb 0.5 MG NEBULIZER IH SCH ×4 (11:15→23:24)
[2019-06-25] MEDS: Levalbuterol Neb 1.25 MG/3 ML IH PRN (11:15)
[2019-06-25] MEDS: DilTIAZem 50 MG in 0.9 % Sodium Chloride 40 ML IVC SCH (17:09)
[2019-06-25] MEDS: *HR* Rivaroxaban 10 MG TABLET PO SCH (17:17)
[2019-06-25] MEDS: Lactobacillus 1 EACH CAP.SPRINK PO SCH (20:24)
[2019-06-26] MEDS: Ipratropium Neb 0.5 MG NEBULIZER IH SCH ×6 (03:59→23:10)
[2019-06-26 06:22] LABS: Hematocrit 34.6 % (37.5-50.1); Hemoglobin 10.9 g/dL (12.9-16.9); Mean Corpuscular HGB Conc 31.5 g/dL (31.6-35.5); Mean Corpuscular Hemoglobin 24.7 pg (28.0-33.3); Mean Corpuscular Volume 78.3 fL (83.0-100.0); Mean Platelet Volume 11.9 fL (9.4-12.4); Platelet Count 294 K/mcL (140-400); Red Blood Count 4.42 M/mcL (4.19-5.50); White Blood Count 12.9 K/mcL (4.3-11.1)
[2019-06-26 06:48] LABS: BUN/Creatinine Ratio 27 (6-26); Blood Urea Nitrogen 29 mg/dL (8-23); Calcium 8.7 mg/dL (8.6-10.3); Carbon Dioxide 26 mEq/L (23-29); Chloride 101 mEq/L (98-107); Glucose 190 mg/dL (70-105); Osmolality,Calculated 295 (280-300); Potassium 4.5 mEq/L (3.5-5.1); Sodium 137 mEq/L (136-145); eGFR For African Americans > 60 (> 60); eGFR For Non-African Americans > 60 (> 60)
[2019-06-26] MEDS: Lactobacillus 1 EACH CAP.SPRINK PO SCH ×2 (07:36→20:40)
[2019-06-26] MEDS: Azithromycin 250 MG TABLET PO SCH (07:36)
[2019-06-26] MEDS: predniSONE 20 MG TABLET PO SCH (07:36)
[2019-06-26] MEDS: Insulin LISPRO 300 UNITS/3 ML VIAL SQ SCH ×4 (07:41→20:41)
[2019-06-26] MEDS ORDERED: Metoprolol XL (24 HR) Succ 50 MG TAB.ER.24H PO SCH ×2 (09:00)
[2019-06-26] MEDS: DilTIAZem 50 MG in 0.9 % Sodium Chloride 40 ML IVC SCH (11:36)
[2019-06-26] MEDS: Budesonide/Formoterol 80/4.5 1 PUFF INH IH SCH (14:43)
[2019-06-26] MEDS ORDERED: Isovue-370 500 ML BOTTLE IVP ONE (15:50)
[2019-06-26] MEDS: *HR* Rivaroxaban 10 MG TABLET PO SCH (16:37)
[2019-06-26] MEDS: Levalbuterol Neb 1.25 MG/3 ML IH PRN (20:07)
[2019-06-27] MEDS: Ipratropium Neb 0.5 MG NEBULIZER IH SCH ×6 (03:47→23:52)
[2019-06-27] MEDS: Levalbuterol Neb 1.25 MG/3 ML IH PRN ×3 (03:47→19:47)
[2019-06-27 05:47] LABS: Hematocrit 37.3 % (37.5-50.1); Hemoglobin 11.3 g/dL (12.9-16.9); Mean Corpuscular HGB Conc 30.3 g/dL (31.6-35.5); Mean Corpuscular Hemoglobin 24.2 pg (28.0-33.3); Mean Corpuscular Volume 79.9 fL (83.0-100.0); Mean Platelet Volume 11.2 fL (9.4-12.4); Platelet Count 327 K/mcL (140-400); Red Blood Count 4.67 M/mcL (4.19-5.50); White Blood Count 9.5 K/mcL (4.3-11.1)
[2019-06-27 06:12] LABS: BUN/Creatinine Ratio 25 (6-26); Blood Urea Nitrogen 29 mg/dL (8-23); Calcium 8.8 mg/dL (8.6-10.3); Carbon Dioxide 28 mEq/L (23-29); Chloride 100 mEq/L (98-107); Glucose 199 mg/dL (70-105); Osmolality,Calculated 295 (280-300); Potassium 4.3 mEq/L (3.5-5.1); Sodium 137 mEq/L (136-145); eGFR For African Americans > 60 (> 60); eGFR For Non-African Americans > 60 (> 60)
[2019-06-27] MEDS: Budesonide/Formoterol 80/4.5 1 PUFF INH IH SCH (07:18)
[2019-06-27] MEDS: Insulin LISPRO 300 UNITS/3 ML VIAL SQ SCH ×4 (08:05→21:37)
[2019-06-27] MEDS: predniSONE 20 MG TABLET PO SCH (08:08)
[2019-06-27] MEDS: Lactobacillus 1 EACH CAP.SPRINK PO SCH ×2 (08:08→21:36)
[2019-06-27] MEDS: Azithromycin 250 MG TABLET PO SCH (08:08)
[2019-06-27] MEDS ORDERED: Perflutren Lipid Microsphere 1.3 ML in 0.9 % Sodium Chloride 8.7 ML IVP ONE (13:06)
[2019-06-27] MEDS: *HR* Rivaroxaban 10 MG TABLET PO SCH (17:33)
[2019-06-28] MEDS: Levalbuterol Neb 1.25 MG/3 ML IH PRN ×3 (04:35→19:51)
[2019-06-28] MEDS: Ipratropium Neb 0.5 MG NEBULIZER IH SCH ×5 (04:35→19:54)
[2019-06-28 05:48] LABS: Hematocrit 36.3 % (37.5-50.1); Hemoglobin 10.9 g/dL (12.9-16.9); Mean Corpuscular Hemoglobin 24.2 pg (28.0-33.3); Mean Corpuscular Volume 80.7 fL (83.0-100.0); Mean Platelet Volume 11.5 fL (9.4-12.4); Platelet Count 302 K/mcL (140-400); Red Cell Distribution Width 17.8 % (11.5-14.5); White Blood Count 8.7 K/mcL (4.3-11.1)
[2019-06-28 06:11] LABS: BUN/Creatinine Ratio 23 (6-26); Blood Urea Nitrogen 28 mg/dL (8-23); Calcium 8.7 mg/dL (8.6-10.3); Carbon Dioxide 28 mEq/L (23-29); Chloride 100 mEq/L (98-107); Glucose 209 mg/dL (70-105); Osmolality,Calculated 296 (280-300); Potassium 4.2 mEq/L (3.5-5.1); Sodium 137 mEq/L (136-145); eGFR For African Americans > 60 (> 60); eGFR For Non-African Americans 58 (> 60)
[2019-06-28] MEDS: Budesonide/Formoterol 80/4.5 1 PUFF INH IH SCH (07:58)
[2019-06-28] MEDS: Insulin LISPRO 300 UNITS/3 ML VIAL SQ SCH ×5 (08:30→20:05)
[2019-06-28] MEDS: predniSONE 20 MG TABLET PO SCH (08:30)
[2019-06-28] MEDS: Azithromycin 250 MG TABLET PO SCH (08:30)
[2019-06-28] MEDS: Furosemide 40 MG/4 ML VIAL IVP SCH ×2 (08:31→17:46)
[2019-06-28] MEDS: Lactobacillus 1 EACH CAP.SPRINK PO SCH ×2 (08:31→20:03)
[2019-06-28] MEDS: *HR* Rivaroxaban 10 MG TABLET PO SCH (17:46)
[2019-06-28] MEDS: Insulin DETEMIR 100 UNIT/ML X5UNITS SQ SCH (20:06)
[2019-06-29] MEDS: Ipratropium Neb 0.5 MG NEBULIZER IH SCH ×7 (00:18→23:08)
[2019-06-29] MEDS: Levalbuterol Neb 1.25 MG/3 ML IH PRN ×2 (07:42→20:23)
[2019-06-29] MEDS: Budesonide/Formoterol 80/4.5 1 PUFF INH IH SCH (07:42)
[2019-06-29 08:15] LABS: BUN/Creatinine Ratio 25 (6-26); Blood Urea Nitrogen 31 mg/dL (8-23); Calcium 8.8 mg/dL (8.6-10.3); Carbon Dioxide 32 mEq/L (23-29); Chloride 101 mEq/L (98-107); Glucose 147 mg/dL (70-105); Magnesium 1.7 mg/dL (1.6-2.6); Osmolality,Calculated 295 (280-300); Phosphorous 3.7 mg/dL (2.7-4.5); Potassium 3.8 mEq/L (3.5-5.1); Sodium 138 mEq/L (136-145); eGFR For African Americans > 60 (> 60); eGFR For Non-African Americans 57 (> 60)
[2019-06-29] MEDS: Azithromycin 250 MG TABLET PO SCH (08:19)
[2019-06-29] MEDS: Insulin DETEMIR 100 UNIT/ML X5UNITS SQ SCH ×2 (08:19→22:00)
[2019-06-29] MEDS: Metoprolol XL (24 HR) Succ 50 MG TAB.ER.24H PO SCH (08:20)
[2019-06-29] MEDS: Furosemide 40 MG/4 ML VIAL IVP SCH ×2 (08:20→18:10)
[2019-06-29] MEDS: predniSONE 20 MG TABLET PO SCH (08:21)
[2019-06-29] MEDS: Insulin LISPRO 300 UNITS/3 ML VIAL SQ SCH ×5 (08:21→17:10)
[2019-06-29] MEDS: Lactobacillus 1 EACH CAP.SPRINK PO SCH ×2 (08:21→22:00)
[2019-06-30] MEDS: Insulin LISPRO 300 UNITS/3 ML VIAL SQ SCH ×8 (00:31→17:19)
[2019-06-30] MEDS: Ipratropium Neb 0.5 MG NEBULIZER IH SCH ×5 (03:23→20:50)
[2019-06-30] MEDS: Budesonide/Formoterol 80/4.5 1 PUFF INH IH SCH (07:28)
[2019-06-30] MEDS ORDERED: 0.9 % Sodium Chloride 1,000 ML ONE ×3 (08:40→09:06)
[2019-06-30] MEDS ORDERED: Nitroglycerin 1,000 MCG/10 ML VIAL IV ONE (08:41)
[2019-06-30] MEDS ORDERED: ISOVUE-370 200 ML INFUS..BTL ONE (08:41)
[2019-06-30] MEDS ORDERED: Heparin 1,000 UNITS/500 mL 500 ML ONE (08:41)
[2019-06-30] MEDS ORDERED: Verapamil 5 MG/2 ML VIAL ONE (08:43)
[2019-06-30] MEDS: Insulin DETEMIR 100 UNIT/ML X5UNITS SQ SCH ×2 (08:50→22:41)
[2019-06-30] MEDS: Furosemide 40 MG/4 ML VIAL IVP SCH (08:54)
[2019-06-30] MEDS: Metoprolol XL (24 HR) Succ 50 MG TAB.ER.24H PO SCH (08:55)
[2019-06-30] MEDS ORDERED: predniSONE 20 MG TABLET PO SCH (09:00)
[2019-06-30] MEDS ORDERED: *HR* Heparin 10,000 UNIT/10 ML VIAL ONE (09:02)
[2019-06-30] MEDS ORDERED: *HR* Midazolam HCl 2 MG/2 ML VIAL ONE (09:11)
[2019-06-30] MEDS: Cyanocobalamin (B-12) 1,000 MCG TABLET PO SCH (10:12)
[2019-06-30] MEDS: Azithromycin 250 MG TABLET PO SCH (10:12)
[2019-06-30] MEDS: Lactobacillus 1 EACH CAP.SPRINK PO SCH ×2 (10:12→22:40)
[2019-06-30] MEDS: Spironolactone 25 MG TABLET PO SCH (12:05)
[2019-06-30] MEDS ORDERED: *HR* Rivaroxaban 10 MG TABLET PO SCH (17:00)
[2019-07-01] MEDS: Ipratropium Neb 0.5 MG NEBULIZER IH SCH ×4 (00:51→11:00)
[2019-07-01 07:28] LABS: BUN/Creatinine Ratio 24 (6-26); Blood Urea Nitrogen 27 mg/dL (8-23); Carbon Dioxide 28 mEq/L (23-29); Chloride 101 mEq/L (98-107); Glucose 172 mg/dL (70-105); Magnesium 1.9 mg/dL (1.6-2.6); Osmolality,Calculated 293 (280-300); Phosphorous 3.5 mg/dL (2.7-4.5); Potassium 4.4 mEq/L (3.5-5.1); Sodium 137 mEq/L (136-145); eGFR For African Americans > 60 (> 60); eGFR For Non-African Americans > 60 (> 60)
[2019-07-01] MEDS: Budesonide/Formoterol 80/4.5 1 PUFF INH IH SCH (07:34)
[2019-07-01] MEDS: Cyanocobalamin (B-12) 1,000 MCG TABLET PO SCH (08:43)
[2019-07-01] MEDS: Lactobacillus 1 EACH CAP.SPRINK PO SCH (08:43)
[2019-07-01] MEDS: Spironolactone 25 MG TABLET PO SCH (08:43)
[2019-07-01] MEDS: Metoprolol XL (24 HR) Succ 50 MG TAB.ER.24H PO SCH (08:43)
[2019-07-01] MEDS: Insulin LISPRO 300 UNITS/3 ML VIAL SQ SCH ×2 (08:44)
[2019-07-01] MEDS: Insulin DETEMIR 100 UNIT/ML X5UNITS SQ SCH (08:49)
[2019-07-01] MEDS ORDERED: Furosemide 40 MG TABLET PO SCH (09:00)
[2019-07-01] MEDS ORDERED: predniSONE 20 MG TABLET PO SCH (09:00)
[2019-07-01] MEDS ORDERED: *HR* Metoprolol 5 MG/5 ML VIAL IVP PRN (10:20)
[2019-07-01 11:29] VITALS: BP 103/70
[2019-07-02] MEDS ORDERED: Metoprolol XL (24 HR) Succ 50 MG TAB.ER.24H PO SCH (09:00)
== END 2019-07-01 14:39 | DRG 190 ==
LOC: 3ANU 12:04 → EMEROOARM 12:04 → SUATTDRO 14:21 → 3ANU 15:16 → SUATTDRO 06-26 16:25
PROVIDERS: ADMIT Family Medicine; ATTEND Internal Medicine

== ENCOUNTER 2021-12-12 11:56 | Inpatient (IN) ==
[2021-12-12] MEDS ORDERED: Iopamidol - 370 500 ML MLS IVP ONE (12:24)
[2021-12-12 12:45] LABS: Basophils # 0.1 K/mcL (0.0-0.2); Basophils % 0.7 %; Eosinophils # 0.1 K/mcL (0.0-0.6); Hematocrit 37.1 % (37.5-50.1); Hemoglobin 11.6 g/dL (12.9-16.9); Immature Granulocytes % 0.5 % (0-4); Lymphocytes % 9.2 %; Mean Corpuscular HGB Conc 31.3 g/dL (31.6-35.5); Mean Corpuscular Hemoglobin 26.6 pg (28.0-33.3); Mean Corpuscular Volume 85.1 fL (83.0-100.0); Mean Platelet Volume 11.5 fL (9.4-12.4); Neutrophils # 8.5 K/mcL (1.6-8.9); Platelet Count 362 K/mcL (140-400); Red Blood Count 4.36 M/mcL (4.19-5.50); Red Cell Distribution Width 15.8 % (11.5-14.5); Segmented Neutrophils % 79.6 %; White Blood Count 10.7 K/mcL (4.3-11.1)
[2021-12-12 12:53] LABS: INR 1.2; Prothrombin Time 13.1 Seconds (9.4-12.1)
[2021-12-12 13:15] LABS: Albumin 3.9 g/dL (3.5-5.7); Albumin/Globulin Ratio 1.7 (1.1-2.2); Bilirubin,Total 0.4 mg/dL (0.3-1.0); Calcium 10.5 mg/dL (8.6-10.3); Globulin 2.3 g/dL (2.4-3.5); Potassium 5.3 mEq/L (3.5-5.1); Total Protein 6.2 g/dL (6.4-8.9); Troponin I 0.03 ng/mL (< 0.04)
[2021-12-12] MEDS ORDERED: 0.9 % Sodium Chloride 500 ML IVC ONE (13:38)
[2021-12-12] MEDS ORDERED: Albuterol 2.5 MG/3 ML NEBULIZER IH ONE ×2 (14:37→18:10)
[2021-12-12] MEDS ORDERED: Metoclopramide 10 MG/2 ML VIAL IVP ONE (16:56)
[2021-12-12] MEDS ORDERED: Ondansetron 4 MG/2 ML VIAL IVP PRN (17:14)
[2021-12-12] MEDS ORDERED: Naloxone 0.4 MG/ML INJ IVP PRN (17:14)
[2021-12-12] MEDS ORDERED: 0.9 % Sodium Chloride w KCl 20 MEQ/1,000 ML MLS IVC SCH (17:15)
[2021-12-12] MEDS ORDERED: Metoprolol XL (24 HR) Succ 25 MG TAB.ER.24H PO SCH (21:00)
[2021-12-12] MEDS: Metoprolol XL (24 HR) Succ 50 MG TAB.ER.24H PO SCH (21:41)
[2021-12-12] MEDS: 0.9 % Sodium Chloride 1,000 ML IVC SCH (21:45)
[2021-12-13 03:17] LABS: Basophils # 0.1 K/mcL (0.0-0.2); Basophils % 0.8 %; Eosinophils # 0.2 K/mcL (0.0-0.6); Eosinophils % 2.3 %; Hematocrit 32.3 % (37.5-50.1); Hemoglobin 10.1 g/dL (12.9-16.9); Immature Granulocytes % 0.5 % (0-4); Lymphocytes # 1.4 K/mcL (0.6-4.6); Lymphocytes % 13.3 %; Mean Corpuscular HGB Conc 31.3 g/dL (31.6-35.5); Mean Corpuscular Hemoglobin 26.2 pg (28.0-33.3); Mean Corpuscular Volume 83.7 fL (83.0-100.0); Mean Platelet Volume 11.8 fL (9.4-12.4); Monocytes # 1.1 K/mcL (0.0-1.3); Monocytes % 10.1 %; Neutrophils # 7.8 K/mcL (1.6-8.9); Platelet Count 381 K/mcL (140-400); Red Blood Count 3.86 M/mcL (4.19-5.50); Red Cell Distribution Width 15.9 % (11.5-14.5); White Blood Count 10.6 K/mcL (4.3-11.1)
[2021-12-13 03:27] LABS: INR 1.1; Prothrombin Time 12.2 Seconds (9.4-12.1)
[2021-12-13 03:40] LABS: Calcium 9.8 mg/dL (8.6-10.3); Chol/HDL Ratio 3.8 (0-4.9); Magnesium 1.4 mg/dL (1.6-2.6)
[2021-12-13] MEDS: Ipratropium/Albuterol Neb 3 ML IH SCH ×6 (04:59→23:07)
[2021-12-13] MEDS: 0.9 % Sodium Chloride 1,000 ML IVC SCH (07:34)
[2021-12-13] MEDS ORDERED: Metoclopramide 10 MG/2 ML VIAL IVP STA (08:28)
[2021-12-13] MEDS: Metoprolol XL (24 HR) Succ 50 MG TAB.ER.24H PO SCH ×2 (09:29→22:07)
[2021-12-13] MEDS ORDERED: *HR* Propofol 200 MG/20 ML VIAL IVP ONE (10:07)
[2021-12-13] MEDS ORDERED: Lidocaine -MPF 2% 5 ML VIAL ONE (10:07)
[2021-12-13] MEDS ORDERED: *HR* Etomidate 40 MG/20 ML VIAL IVP ONE (10:08)
[2021-12-13] MEDS ORDERED: *HR* EPINEPHrine 1 MG/10 ML SYRINGE INTRATRACH PRN (10:28)
[2021-12-13] MEDS ORDERED: *HR* Labetalol 20 MG/4 ML SYRINGE IVP ONE (10:34)
[2021-12-13] MEDS ORDERED: *HR* OxyCODONE Oral Soln 5 MG/5 ML UD.LIQ PO PRN (11:47)
[2021-12-13] MEDS ORDERED: Metoclopramide 10 MG/2 ML VIAL IVP ONE (16:13)
[2021-12-13] MEDS: Sucralfate 1 GM TABLET PO SCH ×2 (16:31→22:09)
[2021-12-13] MEDS ORDERED: *HR* Rivaroxaban 15 MG TABLET PO SCH (17:00)
[2021-12-13] MEDS: Pantoprazole 40 MG VIAL IVP SCH (17:08)
[2021-12-14 02:27] LABS: Basophils # 0.1 K/mcL (0.0-0.2); Basophils % 0.8 %; Eosinophils # 0.2 K/mcL (0.0-0.6); Eosinophils % 2.4 %; Hematocrit 31.5 % (37.5-50.1); Hemoglobin 9.8 g/dL (12.9-16.9); Immature Granulocytes % 0.4 % (0-4); Lymphocytes # 1.4 K/mcL (0.6-4.6); Lymphocytes % 18.6 %; Mean Corpuscular HGB Conc 31.1 g/dL (31.6-35.5); Mean Corpuscular Hemoglobin 26.5 pg (28.0-33.3); Mean Corpuscular Volume 85.1 fL (83.0-100.0); Mean Platelet Volume 11.6 fL (9.4-12.4); Monocytes # 0.8 K/mcL (0.0-1.3); Monocytes % 10.9 %; Platelet Count 315 K/mcL (140-400); Red Cell Distribution Width 15.9 % (11.5-14.5); Segmented Neutrophils % 66.9 %; White Blood Count 7.5 K/mcL (4.3-11.1)
[2021-12-14 02:45] LABS: Calcium 8.8 mg/dL (8.6-10.3); Potassium 4.5 mEq/L (3.5-5.1)
[2021-12-14] MEDS: Ipratropium/Albuterol Neb 3 ML IH SCH ×6 (04:11→23:00)
[2021-12-14] MEDS: Pantoprazole 40 MG VIAL IVP SCH ×2 (05:13→17:35)
[2021-12-14] MEDS: Sucralfate 1 GM TABLET PO SCH ×3 (08:02→17:35)
[2021-12-14] MEDS: Metoprolol XL (24 HR) Succ 50 MG TAB.ER.24H PO SCH (08:03)
[2021-12-15] MEDS: Metoprolol XL (24 HR) Succ 50 MG TAB.ER.24H PO SCH ×3 (00:28→21:41)
[2021-12-15] MEDS: Sucralfate 1 GM TABLET PO SCH ×5 (00:30→21:42)
[2021-12-15] MEDS: Ipratropium/Albuterol Neb 3 ML IH SCH ×6 (03:52→23:29)
[2021-12-15 05:35] LABS: Basophils # 0.1 K/mcL (0.0-0.2); Basophils % 0.8 %; Eosinophils # 0.3 K/mcL (0.0-0.6); Eosinophils % 3.4 %; Hematocrit 29.2 % (37.5-50.1); Immature Granulocytes % 0.4 % (0-4); Lymphocytes # 1.6 K/mcL (0.6-4.6); Lymphocytes % 20.6 %; Mean Corpuscular HGB Conc 30.8 g/dL (31.6-35.5); Mean Corpuscular Hemoglobin 26.4 pg (28.0-33.3); Mean Corpuscular Volume 85.6 fL (83.0-100.0); Mean Platelet Volume 11.2 fL (9.4-12.4); Monocytes # 0.8 K/mcL (0.0-1.3); Monocytes % 10.4 %; Neutrophils # 5.1 K/mcL (1.6-8.9); Platelet Count 278 K/mcL (140-400); Red Blood Count 3.41 M/mcL (4.19-5.50); Red Cell Distribution Width 15.7 % (11.5-14.5); Segmented Neutrophils % 64.4 %
[2021-12-15 05:58] LABS: Calcium 8.2 mg/dL (8.6-10.3); Potassium 4.2 mEq/L (3.5-5.1)
[2021-12-15] MEDS: Pantoprazole 40 MG VIAL IVP SCH ×2 (06:27→17:57)
[2021-12-15] MEDS: 0.9 % Sodium Chloride 1,000 ML IVC SCH ×2 (08:38→21:46)
[2021-12-15] MEDS: Budesonide/Formoterol 80/4.5 1 PUFF INH IH PRN (20:07)
[2021-12-16 03:06] LABS: Basophils # 0.1 K/mcL (0.0-0.2); Basophils % 0.7 %; Eosinophils # 0.2 K/mcL (0.0-0.6); Eosinophils % 3.2 %; Hematocrit 30.2 % (37.5-50.1); Hemoglobin 9.2 g/dL (12.9-16.9); Immature Granulocytes % 0.4 % (0-4); Lymphocytes # 1.2 K/mcL (0.6-4.6); Lymphocytes % 15.4 %; Mean Corpuscular HGB Conc 30.5 g/dL (31.6-35.5); Mean Corpuscular Hemoglobin 26.1 pg (28.0-33.3); Mean Corpuscular Volume 85.6 fL (83.0-100.0); Mean Platelet Volume 11.3 fL (9.4-12.4); Monocytes # 0.8 K/mcL (0.0-1.3); Monocytes % 10.2 %; Neutrophils # 5.3 K/mcL (1.6-8.9); Platelet Count 325 K/mcL (140-400); Red Blood Count 3.53 M/mcL (4.19-5.50); Red Cell Distribution Width 15.8 % (11.5-14.5); Segmented Neutrophils % 70.1 %; White Blood Count 7.6 K/mcL (4.3-11.1)
[2021-12-16 03:23] LABS: BUN/Creatinine Ratio 14 (6-26); Blood Urea Nitrogen 18 mg/dL (8-23); Calcium 8.1 mg/dL (8.6-10.3); Carbon Dioxide 24 mEq/L (23-29); Chloride 104 mEq/L (98-107); Glucose 163 mg/dL (70-105); Osmolality,Calculated 285 (280-300); Potassium 3.9 mEq/L (3.5-5.1); Sodium 135 mEq/L (136-145); eGFR For African Americans > 60 (> 60); eGFR For Non-African Americans 55 (> 60)
[2021-12-16] MEDS: Ipratropium/Albuterol Neb 3 ML IH SCH ×6 (03:25→23:07)
[2021-12-16] MEDS: Pantoprazole 40 MG VIAL IVP SCH ×2 (06:17→16:38)
[2021-12-16] MEDS: Sucralfate 1 GM TABLET PO SCH ×4 (09:12→22:05)
[2021-12-16] MEDS: Metoprolol XL (24 HR) Succ 50 MG TAB.ER.24H PO SCH ×2 (09:14→22:05)
[2021-12-16] MEDS ORDERED: Lidocaine -MPF 2% 5 ML VIAL ONE (14:44)
[2021-12-16] MEDS: 0.9 % Sodium Chloride 1,000 ML IVC SCH (22:06)
[2021-12-17 02:56] LABS: Basophils # 0.1 K/mcL (0.0-0.2); Basophils % 0.7 %; Eosinophils # 0.2 K/mcL (0.0-0.6); Eosinophils % 2.9 %; Hematocrit 29.2 % (37.5-50.1); Hemoglobin 8.9 g/dL (12.9-16.9); Immature Granulocytes % 0.4 % (0-4); Lymphocytes # 1.2 K/mcL (0.6-4.6); Lymphocytes % 15.8 %; Mean Corpuscular HGB Conc 30.5 g/dL (31.6-35.5); Mean Corpuscular Hemoglobin 26.1 pg (28.0-33.3); Mean Corpuscular Volume 85.6 fL (83.0-100.0); Monocytes # 0.9 K/mcL (0.0-1.3); Monocytes % 12.6 %; Platelet Count 299 K/mcL (140-400); Red Blood Count 3.41 M/mcL (4.19-5.50); Red Cell Distribution Width 15.8 % (11.5-14.5); Segmented Neutrophils % 67.6 %; White Blood Count 7.3 K/mcL (4.3-11.1)
[2021-12-17 03:25] LABS: BUN/Creatinine Ratio 13 (6-26); Blood Urea Nitrogen 15 mg/dL (8-23); Calcium 8.2 mg/dL (8.6-10.3); Carbon Dioxide 23 mEq/L (23-29); Chloride 105 mEq/L (98-107); Glucose 245 mg/dL (70-105); Osmolality,Calculated 287 (280-300); Potassium 3.9 mEq/L (3.5-5.1); Sodium 134 mEq/L (136-145); eGFR For African Americans > 60 (> 60); eGFR For Non-African Americans 58 (> 60)
[2021-12-17] MEDS: Ipratropium/Albuterol Neb 3 ML IH SCH ×6 (03:28→23:01)
[2021-12-17] MEDS: Pantoprazole 40 MG VIAL IVP SCH ×2 (05:36→16:37)
[2021-12-17] MEDS: Metoprolol XL (24 HR) Succ 50 MG TAB.ER.24H PO SCH ×2 (07:38→20:16)
[2021-12-17] MEDS: Sucralfate 1 GM TABLET PO SCH ×4 (07:38→21:55)
[2021-12-18 02:15] LABS: Basophils # 0.1 K/mcL (0.0-0.2); Basophils % 0.8 %; Eosinophils # 0.2 K/mcL (0.0-0.6); Eosinophils % 2.5 %; Hematocrit 28.9 % (37.5-50.1); Hemoglobin 8.9 g/dL (12.9-16.9); Immature Granulocytes % 0.2 % (0-4); Lymphocytes # 1.4 K/mcL (0.6-4.6); Lymphocytes % 16.4 %; Mean Corpuscular HGB Conc 30.8 g/dL (31.6-35.5); Mean Corpuscular Hemoglobin 26.5 pg (28.0-33.3); Mean Platelet Volume 12.1 fL (9.4-12.4); Monocytes # 0.9 K/mcL (0.0-1.3); Neutrophils # 5.9 K/mcL (1.6-8.9); Platelet Count 285 K/mcL (140-400); Red Blood Count 3.36 M/mcL (4.19-5.50); Red Cell Distribution Width 15.9 % (11.5-14.5); Segmented Neutrophils % 69.1 %; White Blood Count 8.6 K/mcL (4.3-11.1)
[2021-12-18 02:39] LABS: BUN/Creatinine Ratio 11 (6-26); Blood Urea Nitrogen 14 mg/dL (8-23); Calcium 8.4 mg/dL (8.6-10.3); Carbon Dioxide 24 mEq/L (23-29); Chloride 104 mEq/L (98-107); Glucose 240 mg/dL (70-105); Osmolality,Calculated 286 (280-300); Potassium 4.1 mEq/L (3.5-5.1); Sodium 134 mEq/L (136-145); eGFR For African Americans > 60 (> 60); eGFR For Non-African Americans 51 (> 60)
[2021-12-18] MEDS: Ipratropium/Albuterol Neb 3 ML IH SCH ×6 (03:18→23:37)
[2021-12-18] MEDS ORDERED: Dextrose Gel 15 GM/37.5 ML TUBE PO PRN ×2 (03:32)
[2021-12-18] MEDS ORDERED: *HR* Dextrose 50 % in Water (Syg) 50 ML SYRINGE IVP PRN (03:32)
[2021-12-18] MEDS ORDERED: D5% in Water 1,000 ML IVC PRN (03:32)
[2021-12-18] MEDS: Pantoprazole 40 MG VIAL IVP SCH ×2 (05:58→18:01)
[2021-12-18] MEDS: Metoprolol XL (24 HR) Succ 50 MG TAB.ER.24H PO SCH ×2 (08:34→20:48)
[2021-12-18] MEDS: Insulin LISPRO 300 UNITS/3 ML VIAL SUBQ SCH ×4 (08:34→20:48)
[2021-12-18] MEDS: Sucralfate 1 GM TABLET PO SCH ×4 (08:36→22:15)
[2021-12-18] MEDS: 0.9 % Sodium Chloride 1,000 ML IVC SCH (15:33)
[2021-12-19 02:51] LABS: Basophils % 0.2 %; Eosinophils # 0.2 K/mcL (0.0-0.6); Eosinophils % 1.9 %; Hemoglobin 8.7 g/dL (12.9-16.9); Immature Granulocytes % 0.4 % (0-4); Lymphocytes # 0.8 K/mcL (0.6-4.6); Lymphocytes % 7.2 %; Mean Corpuscular HGB Conc 31.1 g/dL (31.6-35.5); Mean Corpuscular Hemoglobin 26.3 pg (28.0-33.3); Mean Corpuscular Volume 84.6 fL (83.0-100.0); Mean Platelet Volume 11.2 fL (9.4-12.4); Monocytes % 8.6 %; Neutrophils # 9.1 K/mcL (1.6-8.9); Platelet Count 290 K/mcL (140-400); Red Blood Count 3.31 M/mcL (4.19-5.50); Red Cell Distribution Width 15.9 % (11.5-14.5); Segmented Neutrophils % 81.7 %; White Blood Count 11.2 K/mcL (4.3-11.1)
[2021-12-19 03:09] LABS: Potassium 4.1 mEq/L (3.5-5.1)
[2021-12-19] MEDS: Ipratropium/Albuterol Neb 3 ML IH SCH ×6 (04:05→23:37)
[2021-12-19] MEDS: 0.9 % Sodium Chloride 1,000 ML IVC SCH ×3 (06:15→17:30)
[2021-12-19] MEDS: Pantoprazole 40 MG VIAL IVP SCH ×2 (06:16→17:22)
[2021-12-19] MEDS: Insulin LISPRO 300 UNITS/3 ML VIAL SUBQ SCH ×4 (08:06→20:06)
[2021-12-19] MEDS: Sucralfate 1 GM TABLET PO SCH ×4 (08:06→21:38)
[2021-12-19] MEDS: Metoprolol XL (24 HR) Succ 50 MG TAB.ER.24H PO SCH ×2 (08:07→20:03)
[2021-12-19] MEDS ORDERED: Lidocaine -MPF 2% 5 ML VIAL ONE (12:37)
[2021-12-19] MEDS ORDERED: Ondansetron 4 MG/2 ML VIAL ONE (12:37)
[2021-12-19] MEDS ORDERED: *HR* Etomidate 40 MG/20 ML VIAL IVP ONE (12:37)
[2021-12-19] MEDS ORDERED: *HR* FentaNYL (PF) 100 MCG/2 ML VIAL ONE (12:37)
[2021-12-19] MEDS ORDERED: Lidocaine -MPF 4% 5 ML AMPUL ONE (12:37)
[2021-12-19] MEDS ORDERED: *HR* Propofol 200 MG/20 ML VIAL IVP ONE (12:37)
[2021-12-19] MEDS ORDERED: Simethicone 40 MG/0.6 ML MLS IR ONE (13:00)
[2021-12-19] MEDS ORDERED: Ondansetron 4 MG/2 ML VIAL IVP PRN (13:08)
[2021-12-19] MEDS ORDERED: Albuterol 2.5 MG/3 ML NEBULIZER IH PRN (13:23)
[2021-12-19] MEDS: Ringers Solution, Lactated 1,000 ML IVC SCH (16:00)
[2021-12-19] MEDS: Budesonide/Formoterol 80/4.5 1 PUFF INH IH PRN (19:28)
[2021-12-20] MEDS: 0.9 % Sodium Chloride 1,000 ML IVC SCH (03:14)
[2021-12-20 03:34] LABS: Basophils % 0.1 %; Eosinophils % 0.1 %; Hemoglobin 8.1 g/dL (12.9-16.9); Immature Granulocytes % 0.6 % (0-4); Lymphocytes # 0.6 K/mcL (0.6-4.6); Lymphocytes % 8.8 %; Mean Corpuscular HGB Conc 31.2 g/dL (31.6-35.5); Mean Corpuscular Hemoglobin 26.6 pg (28.0-33.3); Mean Corpuscular Volume 85.5 fL (83.0-100.0); Mean Platelet Volume 10.8 fL (9.4-12.4); Monocytes # 0.6 K/mcL (0.0-1.3); Monocytes % 8.5 %; Neutrophils # 5.6 K/mcL (1.6-8.9); Platelet Count 270 K/mcL (140-400); Red Blood Count 3.04 M/mcL (4.19-5.50); Red Cell Distribution Width 16.1 % (11.5-14.5); Segmented Neutrophils % 81.9 %; White Blood Count 6.8 K/mcL (4.3-11.1)
[2021-12-20] MEDS: Ipratropium/Albuterol Neb 3 ML IH SCH ×4 (03:42→15:34)
[2021-12-20 03:56] LABS: BUN/Creatinine Ratio 12 (6-26); Blood Urea Nitrogen 16 mg/dL (8-23); Calcium 7.9 mg/dL (8.6-10.3); Carbon Dioxide 24 mEq/L (23-29); Chloride 107 mEq/L (98-107); Glucose 269 mg/dL (70-105); Osmolality,Calculated 293 (280-300); Potassium 4.4 mEq/L (3.5-5.1); Sodium 136 mEq/L (136-145); eGFR For African Americans > 60 (> 60); eGFR For Non-African Americans 53 (> 60)
[2021-12-20] MEDS: Pantoprazole 40 MG VIAL IVP SCH (05:21)
[2021-12-20] MEDS: Sucralfate 1 GM TABLET PO SCH ×2 (08:24→13:02)
[2021-12-20] MEDS: Metoprolol XL (24 HR) Succ 50 MG TAB.ER.24H PO SCH (08:25)
[2021-12-20] MEDS: Insulin LISPRO 300 UNITS/3 ML VIAL SUBQ SCH ×2 (08:26→13:02)
[2021-12-20 11:11] LABS: Influenza A PCR Negative (Negative); Influenza B PCR Negative (Negative); Resp. Syncytial Virus PCR Negative (Negative)
[2021-12-20 11:12] LABS: SARS-CoV-2 by PCR (In House) Negative (Negative)
[2021-12-20 12:16] VITALS: BP 123/62; PULSE 89; TEMP 97.7; O2SAT 98
[2021-12-20] MEDS: Ringers Solution, Lactated 1,000 ML IVC SCH (13:02)
== END 2021-12-20 16:10 | DRG 377 ==
LOC: 3ANU 11:56 → EMEROOARM 11:56 → 3ANU 19:48 → SUATTDRO 12-13 15:52
PROVIDERS: ADMIT Hospitalist; ATTEND Family Medicine

== ENCOUNTER 2022-03-10 06:23 | Inpatient (IN) ==
[2022-03-10 07:14] LABS: Basophils # 0.1 K/mcL (0.0-0.2); Eosinophils # 0.3 K/mcL (0.0-0.6); Eosinophils % 2.8 %; Hematocrit 32.8 % (37.5-50.1); Hemoglobin 9.8 g/dL (12.9-16.9); Immature Granulocytes % 0.3 % (0-4); Lymphocytes # 1.9 K/mcL (0.6-4.6); Lymphocytes % 20.3 %; Mean Corpuscular HGB Conc 29.9 g/dL (31.6-35.5); Mean Corpuscular Hemoglobin 23.1 pg (28.0-33.3); Mean Corpuscular Volume 77.2 fL (83.0-100.0); Mean Platelet Volume 11.1 fL (9.4-12.4); Monocytes # 0.9 K/mcL (0.0-1.3); Monocytes % 9.8 %; Neutrophils # 6.2 K/mcL (1.6-8.9); Platelet Count 295 K/mcL (140-400); Red Blood Count 4.25 M/mcL (4.19-5.50); Red Cell Distribution Width 17.2 % (11.5-14.5); Segmented Neutrophils % 65.8 %; White Blood Count 9.4 K/mcL (4.3-11.1)
[2022-03-10 08:06] LABS: BUN/Creatinine Ratio 11 (6-26); Blood Urea Nitrogen 16 mg/dL (8-23); Calcium 8.7 mg/dL (8.6-10.3); Carbon Dioxide 25 mEq/L (23-29); Chloride 98 mEq/L (98-107); Glucose 221 mg/dL (70-105); Osmolality,Calculated 276 (280-300); Potassium 5.5 mEq/L (3.5-5.1); Sodium 129 mEq/L (136-145); Troponin I < 0.03 ng/mL (< 0.04)
[2022-03-10] MEDS ORDERED: 0.9 % Sodium Chloride 1,000 ML IVC ONE (08:14)
[2022-03-10] MEDS ORDERED: Ipratropium/Albuterol Neb 3 ML IH ONE (08:38)
[2022-03-10 08:39] LABS: Bilirubin,Urine Negative (Negative); Blood,Urine Negative (Negative); Clarity,Urine Clear (Clear); Color,Urine Colorless (Yellow); Glucose,Urine (UA) 100 mg/dL (Normal); Ketones,Urine Negative (Negative); Leukocyte Esterase,Urine Negative (Negative); Mucus,Urine Few per lpf (None-Few); Nitrite,Urine Negative (Negative); PH,Urine 7.5 pH Units (5.0-8.0); Protein,Urine Negative (Neg-Trace); RBC,Urine 0-3 per hpf (0-3); Specific Gravity,Urine 1.008 (1.010-1.025); Urobilinogen,Urine Normal (Normal); WBC,Urine 0-3 per hpf (0-3)
[2022-03-10] MEDS ORDERED: Melatonin 3 MG TABLET PO PRN (09:16)
[2022-03-10] MEDS ORDERED: Acetaminophen 325 MG TABLET PO PRN (09:16)
[2022-03-10] MEDS ORDERED: Ondansetron 4 MG/2 ML VIAL IVP PRN (09:16)
[2022-03-10] MEDS ORDERED: D5% in Water 1,000 ML IVC PRN (09:19)
[2022-03-10] MEDS ORDERED: Dextrose Gel 15 GM/37.5 ML TUBE PO PRN ×2 (09:19)
[2022-03-10] MEDS ORDERED: *HR* Dextrose 50 % in Water (Syg) 50 ML SYRINGE IVP PRN (09:19)
[2022-03-10] MEDS ORDERED: Metoprolol XL (24 HR) Succ 50 MG TAB.ER.24H PO SCH (09:30)
[2022-03-10 09:43] LABS: Influenza A PCR Negative (Negative); Influenza B PCR Negative (Negative); Resp. Syncytial Virus PCR Negative (Negative)
[2022-03-10 10:04] LABS: SARS-CoV-2 by PCR (In House) Negative (Negative)
[2022-03-10] MEDS: Metoprolol XL (24 HR) Succ 25 MG TAB.ER.24H PO SCH ×2 (10:44→19:57)
[2022-03-10] MEDS: Ipratropium/Albuterol Neb 3 ML IH SCH ×3 (15:00→22:42)
[2022-03-10] MEDS: *HR* Metformin 500 MG TABLET PO SCH (17:44)
[2022-03-10] MEDS: *HR* Rivaroxaban 15 MG TABLET PO SCH (19:57)
[2022-03-11 03:23] LABS: Calcium 8.8 mg/dL (8.6-10.3); Potassium 4.6 mEq/L (3.5-5.1)
[2022-03-11] MEDS: Ipratropium/Albuterol Neb 3 ML IH SCH ×4 (04:07→21:18)
[2022-03-11] MEDS: Metoprolol XL (24 HR) Succ 25 MG TAB.ER.24H PO SCH ×2 (08:25→21:02)
[2022-03-11] MEDS: *HR* Metformin 500 MG TABLET PO SCH (08:25)
[2022-03-11] MEDS: Insulin LISPRO 300 UNITS/3 ML VIAL SUBQ SCH ×3 (11:34→21:04)
[2022-03-11] MEDS: *HR* Rivaroxaban 15 MG TABLET PO SCH (17:19)
[2022-03-12 02:52] LABS: Basophils # 0.1 K/mcL (0.0-0.2); Basophils % 0.9 %; Eosinophils # 0.2 K/mcL (0.0-0.6); Eosinophils % 3.1 %; Hematocrit 30.4 % (37.5-50.1); Immature Granulocytes % 0.4 % (0-4); Lymphocytes # 1.2 K/mcL (0.6-4.6); Lymphocytes % 16.4 %; Mean Corpuscular HGB Conc 29.6 g/dL (31.6-35.5); Mean Corpuscular Volume 77.6 fL (83.0-100.0); Mean Platelet Volume 11.1 fL (9.4-12.4); Monocytes # 0.8 K/mcL (0.0-1.3); Monocytes % 10.7 %; Neutrophils # 5.1 K/mcL (1.6-8.9); Platelet Count 293 K/mcL (140-400); Red Blood Count 3.92 M/mcL (4.19-5.50); Red Cell Distribution Width 17.2 % (11.5-14.5); Segmented Neutrophils % 68.5 %; White Blood Count 7.5 K/mcL (4.3-11.1)
[2022-03-12 02:59] LABS: Calcium 8.6 mg/dL (8.6-10.3); Magnesium 1.7 mg/dL (1.6-2.6); Potassium 4.2 mEq/L (3.5-5.1)
[2022-03-12] MEDS: Ipratropium/Albuterol Neb 3 ML IH SCH ×4 (04:36→21:20)
[2022-03-12] MEDS: Metoprolol XL (24 HR) Succ 25 MG TAB.ER.24H PO SCH ×2 (08:14→21:02)
[2022-03-12] MEDS: Insulin LISPRO 300 UNITS/3 ML VIAL SUBQ SCH ×4 (08:15→21:03)
[2022-03-12] MEDS: *HR* Rivaroxaban 15 MG TABLET PO SCH (16:38)
[2022-03-13] MEDS: Ipratropium/Albuterol Neb 3 ML IH SCH ×4 (04:18→22:44)
[2022-03-13 04:39] LABS: Basophils # 0.1 K/mcL (0.0-0.2); Basophils % 1.1 %; Eosinophils # 0.2 K/mcL (0.0-0.6); Eosinophils % 3.5 %; Hematocrit 30.9 % (37.5-50.1); Hemoglobin 9.1 g/dL (12.9-16.9); Immature Granulocytes % 0.3 % (0-4); Lymphocytes # 1.1 K/mcL (0.6-4.6); Lymphocytes % 17.6 %; Mean Corpuscular HGB Conc 29.4 g/dL (31.6-35.5); Mean Corpuscular Hemoglobin 22.8 pg (28.0-33.3); Mean Corpuscular Volume 77.4 fL (83.0-100.0); Mean Platelet Volume 11.6 fL (9.4-12.4); Monocytes # 0.7 K/mcL (0.0-1.3); Monocytes % 10.9 %; Neutrophils # 4.2 K/mcL (1.6-8.9); Platelet Count 240 K/mcL (140-400); Red Blood Count 3.99 M/mcL (4.19-5.50); Red Cell Distribution Width 17.2 % (11.5-14.5); Segmented Neutrophils % 66.6 %; White Blood Count 6.3 K/mcL (4.3-11.1)
[2022-03-13 04:49] LABS: Calcium 8.7 mg/dL (8.6-10.3); Magnesium 1.6 mg/dL (1.6-2.6); Potassium 4.4 mEq/L (3.5-5.1)
[2022-03-13] MEDS: Metoprolol XL (24 HR) Succ 25 MG TAB.ER.24H PO SCH ×2 (09:02→20:31)
[2022-03-13] MEDS: Insulin LISPRO 300 UNITS/3 ML VIAL SUBQ SCH ×4 (09:02→20:50)
[2022-03-13] MEDS: *HR* Rivaroxaban 15 MG TABLET PO SCH (18:18)
[2022-03-14 01:57] LABS: Basophils # 0.1 K/mcL (0.0-0.2); Basophils % 1.4 %; Eosinophils # 0.2 K/mcL (0.0-0.6); Eosinophils % 2.9 %; Hematocrit 31.3 % (37.5-50.1); Hemoglobin 9.1 g/dL (12.9-16.9); Immature Granulocytes % 0.3 % (0-4); Lymphocytes # 1.2 K/mcL (0.6-4.6); Lymphocytes % 16.5 %; Mean Corpuscular HGB Conc 29.1 g/dL (31.6-35.5); Mean Corpuscular Hemoglobin 22.9 pg (28.0-33.3); Mean Corpuscular Volume 78.8 fL (83.0-100.0); Mean Platelet Volume 10.9 fL (9.4-12.4); Monocytes # 0.9 K/mcL (0.0-1.3); Monocytes % 11.7 %; Neutrophils # 4.9 K/mcL (1.6-8.9); Platelet Count 282 K/mcL (140-400); Red Blood Count 3.97 M/mcL (4.19-5.50); Red Cell Distribution Width 17.3 % (11.5-14.5); Segmented Neutrophils % 67.2 %; White Blood Count 7.3 K/mcL (4.3-11.1)
[2022-03-14 02:06] LABS: Magnesium 1.7 mg/dL (1.6-2.6); Potassium 4.3 mEq/L (3.5-5.1)
[2022-03-14] MEDS: Ipratropium/Albuterol Neb 3 ML IH SCH ×4 (04:23→22:44)
[2022-03-14] MEDS: Metoprolol XL (24 HR) Succ 25 MG TAB.ER.24H PO SCH ×2 (08:16→20:41)
[2022-03-14] MEDS: Insulin LISPRO 300 UNITS/3 ML VIAL SUBQ SCH ×4 (08:16→20:41)
[2022-03-14] MEDS: *HR* Rivaroxaban 15 MG TABLET PO SCH (17:19)
[2022-03-14] MEDS: Insulin DETEMIR 100 UNIT/ML X5UNITS SUBQ SCH (20:42)
[2022-03-15] MEDS: Ipratropium/Albuterol Neb 3 ML IH SCH ×4 (03:16→22:26)
[2022-03-15 05:30] LABS: Basophils # 0.1 K/mcL (0.0-0.2); Basophils % 0.8 %; Eosinophils # 0.2 K/mcL (0.0-0.6); Eosinophils % 3.5 %; Hematocrit 30.5 % (37.5-50.1); Hemoglobin 8.9 g/dL (12.9-16.9); Immature Granulocytes % 0.3 % (0-4); Lymphocytes % 16.6 %; Mean Corpuscular HGB Conc 29.2 g/dL (31.6-35.5); Mean Corpuscular Hemoglobin 22.7 pg (28.0-33.3); Mean Corpuscular Volume 77.8 fL (83.0-100.0); Mean Platelet Volume 11.4 fL (9.4-12.4); Monocytes # 0.7 K/mcL (0.0-1.3); Monocytes % 11.5 %; Neutrophils # 4.1 K/mcL (1.6-8.9); Platelet Count 279 K/mcL (140-400); Red Blood Count 3.92 M/mcL (4.19-5.50); Red Cell Distribution Width 17.2 % (11.5-14.5); Segmented Neutrophils % 67.3 %; White Blood Count 6.1 K/mcL (4.3-11.1)
[2022-03-15 05:44] LABS: Calcium 8.7 mg/dL (8.6-10.3); Magnesium 1.8 mg/dL (1.6-2.6); Potassium 4.4 mEq/L (3.5-5.1)
[2022-03-15] MEDS: Insulin LISPRO 300 UNITS/3 ML VIAL SUBQ SCH ×4 (08:12→20:24)
[2022-03-15] MEDS: Metoprolol XL (24 HR) Succ 25 MG TAB.ER.24H PO SCH (08:12)
[2022-03-15] MEDS: Insulin DETEMIR 100 UNIT/ML X5UNITS SUBQ SCH ×2 (08:13→20:23)
[2022-03-15] MEDS: carvediloL 6.25 MG TABLET PO SCH (17:01)
[2022-03-15] MEDS: *HR* Rivaroxaban 15 MG TABLET PO SCH (17:01)
[2022-03-16 02:23] LABS: Basophils # 0.1 K/mcL (0.0-0.2); Basophils % 0.9 %; Eosinophils # 0.3 K/mcL (0.0-0.6); Eosinophils % 3.3 %; Hematocrit 31.4 % (37.5-50.1); Hemoglobin 9.3 g/dL (12.9-16.9); Immature Granulocytes % 0.4 % (0-4); Lymphocytes # 1.2 K/mcL (0.6-4.6); Lymphocytes % 15.9 %; Mean Corpuscular HGB Conc 29.6 g/dL (31.6-35.5); Mean Corpuscular Hemoglobin 23.4 pg (28.0-33.3); Mean Corpuscular Volume 78.9 fL (83.0-100.0); Mean Platelet Volume 11.6 fL (9.4-12.4); Monocytes # 0.8 K/mcL (0.0-1.3); Neutrophils # 5.2 K/mcL (1.6-8.9); Platelet Count 306 K/mcL (140-400); Red Blood Count 3.98 M/mcL (4.19-5.50); Red Cell Distribution Width 17.2 % (11.5-14.5); Segmented Neutrophils % 68.5 %; White Blood Count 7.6 K/mcL (4.3-11.1)
[2022-03-16 02:49] LABS: Calcium 9.1 mg/dL (8.6-10.3); Magnesium 1.7 mg/dL (1.6-2.6); Potassium 4.3 mEq/L (3.5-5.1)
[2022-03-16] MEDS: Ipratropium/Albuterol Neb 3 ML IH SCH ×4 (04:31→21:43)
[2022-03-16] MEDS: carvediloL 6.25 MG TABLET PO SCH ×2 (09:03→17:00)
[2022-03-16] MEDS: Insulin DETEMIR 100 UNIT/ML X5UNITS SUBQ SCH ×2 (09:11→20:22)
[2022-03-16] MEDS: Insulin LISPRO 300 UNITS/3 ML VIAL SUBQ SCH ×4 (09:21→20:22)
[2022-03-16] MEDS: *HR* Rivaroxaban 15 MG TABLET PO SCH (17:00)
[2022-03-17 02:32] LABS: Basophils # 0.1 K/mcL (0.0-0.2); Eosinophils # 0.2 K/mcL (0.0-0.6); Hematocrit 29.9 % (37.5-50.1); Hemoglobin 8.7 g/dL (12.9-16.9); Immature Granulocytes % 0.3 % (0-4); Lymphocytes # 1.1 K/mcL (0.6-4.6); Lymphocytes % 16.8 %; Mean Corpuscular HGB Conc 29.1 g/dL (31.6-35.5); Mean Corpuscular Hemoglobin 22.7 pg (28.0-33.3); Mean Corpuscular Volume 77.9 fL (83.0-100.0); Mean Platelet Volume 11.7 fL (9.4-12.4); Monocytes # 0.8 K/mcL (0.0-1.3); Monocytes % 12.4 %; Neutrophils # 4.5 K/mcL (1.6-8.9); Platelet Count 292 K/mcL (140-400); Red Blood Count 3.84 M/mcL (4.19-5.50); Red Cell Distribution Width 17.2 % (11.5-14.5); Segmented Neutrophils % 66.5 %; White Blood Count 6.7 K/mcL (4.3-11.1)
[2022-03-17 02:52] LABS: Calcium 8.6 mg/dL (8.6-10.3); Magnesium 1.7 mg/dL (1.6-2.6); Potassium 4.3 mEq/L (3.5-5.1)
[2022-03-17] MEDS: Ipratropium/Albuterol Neb 3 ML IH SCH ×4 (03:44→21:13)
[2022-03-17] MEDS: carvediloL 6.25 MG TABLET PO SCH ×2 (08:11→16:06)
[2022-03-17] MEDS: Insulin DETEMIR 100 UNIT/ML X5UNITS SUBQ SCH ×2 (08:14→20:48)
[2022-03-17] MEDS: Insulin LISPRO 300 UNITS/3 ML VIAL SUBQ SCH ×4 (08:16→20:47)
[2022-03-17] MEDS: *HR* Rivaroxaban 15 MG TABLET PO SCH (16:06)
[2022-03-18] MEDS: Ipratropium/Albuterol Neb 3 ML IH SCH ×2 (04:23→10:32)
[2022-03-18 06:35] LABS: Basophils % 0.6 %; Eosinophils # 0.2 K/mcL (0.0-0.6); Eosinophils % 2.6 %; Hematocrit 30.3 % (37.5-50.1); Hemoglobin 8.9 g/dL (12.9-16.9); Immature Granulocytes % 0.3 % (0-4); Lymphocytes # 1.1 K/mcL (0.6-4.6); Lymphocytes % 15.3 %; Mean Corpuscular HGB Conc 29.4 g/dL (31.6-35.5); Mean Corpuscular Hemoglobin 22.6 pg (28.0-33.3); Mean Corpuscular Volume 76.9 fL (83.0-100.0); Mean Platelet Volume 11.1 fL (9.4-12.4); Monocytes # 0.7 K/mcL (0.0-1.3); Monocytes % 10.6 %; Neutrophils # 4.9 K/mcL (1.6-8.9); Platelet Count 278 K/mcL (140-400); Red Blood Count 3.94 M/mcL (4.19-5.50); Red Cell Distribution Width 17.1 % (11.5-14.5); Segmented Neutrophils % 70.6 %
[2022-03-18 06:55] LABS: Calcium 8.6 mg/dL (8.6-10.3); Magnesium 1.6 mg/dL (1.6-2.6); Potassium 4.1 mEq/L (3.5-5.1)
[2022-03-18] MEDS: Insulin LISPRO 300 UNITS/3 ML VIAL SUBQ SCH ×2 (08:14→11:49)
[2022-03-18] MEDS: Insulin DETEMIR 100 UNIT/ML X5UNITS SUBQ SCH (08:14)
[2022-03-18] MEDS: carvediloL 6.25 MG TABLET PO SCH (08:15)
[2022-03-18 10:55] VITALS: BP 97/63; PULSE 82; TEMP 97.6
[2022-03-18 11:52] LABS: Influenza A PCR Negative (Negative); Influenza B PCR Negative (Negative); Resp. Syncytial Virus PCR Negative (Negative)
[2022-03-18 11:53] LABS: SARS-CoV-2 by PCR (In House) Negative (Negative)
[2022-03-18] MEDS ORDERED: Ipratropium/Albuterol Neb 3 ML IH ONE (14:20)
[2022-03-18 14:30] VITALS: O2SAT 94
== END 2022-03-18 14:45 | DRG 70 ==
LOC: EMEROOARM 06:23 → 2ANU 06:23 → SUATTDRO 09:09 → 2ANU 10:00
PROVIDERS: ADMIT Internal Medicine; ATTEND Pharmacist